=== PATIENT | female | born 1980 | race American Indian/Alaskan Native ===

== ENCOUNTER 2022-01-07 10:23 | Emergency (ER) | payer OTHER ==
[~2022-01-07] VITALS: Ht 172.7 cm; Wt 98.4 kg
[~2022-01-07 10:23] MED LIST: ALBU90OI INH; Loratadine10 MG PO; ONDA4ODT MM
[2022-01-07 10:48] LABS: BASOPHILS ABSOLUTE AUTO 0.03 K/mm3 (0.00-0.23); BASOPHILS PERCENT AUTO 0 % (0-2); EOSINOPHILS ABSOLUTE AUTO 0.07 K/mm3 (0.00-0.68); EOSINOPHILS PERCENT AUTO 1 % (0-6); Hematocrit 39.9 % (33.0-51.0); IMMATURE GRAN ABSOLUTE AUTO 0.02 K/mm3 (0.00-0.10); IMMATURE GRAN PERCENT AUTO 0 % (0-1); LYMPHOCYTES ABSOLUTE AUTO 2.08 K/mm3 (0.84-5.20); LYMPHOCYTES PERCENT AUTO 21 % (21-46); MONOCYTES ABSOLUTE AUTO 0.41 K/mm3 (0.16-1.47); MONOCYTES PERCENT AUTO 4 % (4-13); Mean Corpuscular HGB 27.3 pg (26.0-34.0); Mean Corpuscular HGB Conc 32.6 g/dL (31.5-36.5); Mean Corpuscular Volume 84 fL (80-100); Mean Platelet Volume 9.8 fL (9.1-12.4); NEUTROPHILS PERCENT AUTO 74 % (41-73); Platelet Count 392 K/mm3 (150-400); RDW Coefficient Variation 12.8 % (11.7-14.2); RDW Standard Deviation 38.9 fL (35.1-46.3); Red Blood Cell Count 4.76 M/mm3 (3.80-5.20); White Blood Cell Count 10.01 K/mm3 (4.00-11.30)
[2022-01-07 11:13] LABS: Alanine Aminotransfer (ALT/SGP 23 U/L (12-78); Albumin, Blood 3.5 g/dL (3.4-5.0); Albumin/Globulin Ratio 0.8 (0.8-1.8); Alk Phos 62 U/L (50-136); Anion Gap 8 mmol/L (6-16); Aspartate Aminotrans (AST/SGOT 18 U/L (12-37); Bilirubin, Total 0.3 mg/dL (0.1-1.0); Blood Urea Nitrogen 11 mg/dL (8-24); Bun/Creatinine Ratio 15.4 (12.0-20.0); CO2, Blood 23 mmol/L (21-32); Calcium, Blood 8.9 mg/dL (8.5-10.1); Chloride, Blood 106 mmol/L (98-108); Creatinine, Blood 0.72 mg/dL (0.40-1.00); Globulin, Blood 4.4 g/dL (2.2-4.0); Glomerular Filtration Rate >60 (60-); Glucose, Blood 103 mg/dL (70-99); Potassium, Blood 3.4 mmol/L (3.5-5.5); Sodium, Blood 137 mmol/L (136-145); Total Protein, Blood 7.9 g/dL (6.4-8.2)
[2022-01-07 11:56] LABS: Influenza A, PCR NEGATIVE (NEGATIVE); Influenza B, PCR NEGATIVE (NEGATIVE); Resp Syncytial Virus, PCR NEGATIVE (NEGATIVE); SARS-Cov-2 (COVID-19) PCR, MMC NEGATIVE (NEGATIVE)
[2022-01-07 12:19] LABS: Source, Urine Clean Catch
[2022-01-07 12:21] LABS: Bilirubin, Urine Neg (Neg); Blood, Urine 1+ (Neg); Glucose Qualitative, Urine Neg (Neg); Ketones, Urine 3+ (Neg); Leukocyte Esterase, Urine 2+ (Neg); Nitrite, Urine Neg (Neg); Protein, Urine 2+ (Neg); Specific Gravity, Urine 1.025 (1.003-1.022); Urobilinogen, Urine 1+ (Normal)
[2022-01-07 12:25] LABS: Appearance, Urine Hazy (Clear); Bacteria Mod /hpf; Color, Urine Pale Yellow (P-Yellow); Squamous Epithelial Cells Few /hpf (Few)
[2022-01-07] MEDS ORDERED: CEPH500 PO (13:19)
== END 2022-01-07 14:40 | disposition home or self-care (01) ==
LOC: ER 10:23
PROVIDERS: Physician Assistant
DX: N39.0 Urinary tract infection, site not specified (principal); R07.9 Chest pain, unspecified; I10 Essential (primary) hypertension; J45.909 Unspecified asthma, uncomplicated; I25.2 Old myocardial infarction; Z88.0 Allergy status to penicillin
CPT/HCPCS: 0241U; 71046; 80053; 81001; 81025; 84484; 85025; 87086; 93005; 93010; 96374; 96375; 99285-25; J1885; J2405

== ENCOUNTER 2022-01-23 11:54 | Emergency (ER) | payer OTHER ==
[~2022-01-23] VITALS: Ht 172.7 cm; Wt 98.0 kg
[~2022-01-23 11:54] MED LIST changes: +CEPH500 PO
[2022-01-23 12:33] LABS: BASOPHILS ABSOLUTE AUTO 0.02 K/mm3 (0.00-0.23); BASOPHILS PERCENT AUTO 0 % (0-2); EOSINOPHILS ABSOLUTE AUTO 0.01 K/mm3 (0.00-0.68); EOSINOPHILS PERCENT AUTO 0 % (0-6); Hematocrit 40.2 % (33.0-51.0); Hemoglobin 12.9 g/dL (11.5-16.0); IMMATURE GRAN ABSOLUTE AUTO 0.01 K/mm3 (0.00-0.10); IMMATURE GRAN PERCENT AUTO 0 % (0-1); LYMPHOCYTES ABSOLUTE AUTO 0.88 K/mm3 (0.84-5.20); LYMPHOCYTES PERCENT AUTO 17 % (21-46); MONOCYTES ABSOLUTE AUTO 0.59 K/mm3 (0.16-1.47); MONOCYTES PERCENT AUTO 12 % (4-13); Mean Corpuscular HGB 27.3 pg (26.0-34.0); Mean Corpuscular HGB Conc 32.1 g/dL (31.5-36.5); Mean Corpuscular Volume 85 fL (80-100); NEUTROPHILS ABSOLUTE AUTO 3.62 K/mm3 (1.96-9.15); NEUTROPHILS PERCENT AUTO 71 % (41-73); Platelet Count 267 K/mm3 (150-400); RDW Standard Deviation 39.9 fL (35.1-46.3); Red Blood Cell Count 4.73 M/mm3 (3.80-5.20); White Blood Cell Count 5.13 K/mm3 (4.00-11.30)
[2022-01-23 12:49] LABS: Alanine Aminotransfer (ALT/SGP 82 U/L (12-78); Albumin, Blood 3.4 g/dL (3.4-5.0); Albumin/Globulin Ratio 0.8 (0.8-1.8); Alk Phos 65 U/L (50-136); Anion Gap 7 mmol/L (6-16); Aspartate Aminotrans (AST/SGOT 66 U/L (12-37); Bilirubin, Total 0.2 mg/dL (0.1-1.0); Blood Urea Nitrogen 11 mg/dL (8-24); Bun/Creatinine Ratio 16.2 (12.0-20.0); CO2, Blood 25 mmol/L (21-32); Calcium, Blood 8.9 mg/dL (8.5-10.1); Chloride, Blood 104 mmol/L (98-108); Creatinine, Blood 0.68 mg/dL (0.40-1.00); Globulin, Blood 4.3 g/dL (2.2-4.0); Glomerular Filtration Rate >60 (60-); Glucose, Blood 116 mg/dL (70-99); Potassium, Blood 4.1 mmol/L (3.5-5.5); Sodium, Blood 136 mmol/L (136-145); Total Protein, Blood 7.7 g/dL (6.4-8.2)
[2022-01-23 12:59] LABS: Source, Urine Clean Catch
[2022-01-23] MEDS ORDERED: TOPI100 (13:08)
[2022-01-23] MEDS ORDERED: BENA20 (13:08)
[2022-01-23] MEDS ORDERED: ZOLOFT25 MG (13:08)
[2022-01-23 13:09] LABS: Appearance, Urine Clear (Clear); Bilirubin, Urine Neg (Neg); Blood, Urine 2+ (Neg); Color, Urine Yellow (P-Yellow); Glucose Qualitative, Urine Neg (Neg); Ketones, Urine 1+ (Neg); Leukocyte Esterase, Urine Neg (Neg); Nitrite, Urine Neg (Neg); Protein, Urine 2+ (Neg); Specific Gravity, Urine 1.025 (1.003-1.022); Urobilinogen, Urine NORM (Normal)
[2022-01-23 13:25] LABS: Bacteria Many /hpf; Mucus Mod (0-Heavy); Red Blood Cells, Urine 0-2 /hpf (0-2); Squamous Epithelial Cells Many /hpf (Few); White Blood Cells, Urine 0-2 /hpf (0-5)
== END 2022-01-23 14:15 | disposition home or self-care (01) ==
LOC: ER 11:54
PROVIDERS: Physician Assistant
DX: B34.9 Viral infection, unspecified (principal); J98.8 Other specified respiratory disorders; I10 Essential (primary) hypertension; J45.909 Unspecified asthma, uncomplicated; G43.909 Migraine, unspecified, not intractable, without status migrainosus; I25.2 Old myocardial infarction; Z88.0 Allergy status to penicillin; Z79.899 Other long term (current) drug therapy
CPT/HCPCS: 36415; 80053; 81001; 81025; 83690; 85025; 87086; 96374; 99284; A9270; J2405; J7030

== ENCOUNTER 2022-02-04 21:33 | Emergency (ER) | payer OTHER ==
[~2022-02-04] VITALS: Ht 172.7 cm; Wt 98.0 kg
[~2022-02-04 21:33] MED LIST changes: +BENA20; +TOPI100; +ZOLOFT25 MG
[2022-02-04 23:40] LABS: Influenza A, PCR NEGATIVE (NEGATIVE); Influenza B, PCR NEGATIVE (NEGATIVE); Resp Syncytial Virus, PCR NEGATIVE (NEGATIVE)
[2022-02-04 23:53] LABS: SARS-Cov-2 (COVID-19) PCR, MMC POSITIVE (NEGATIVE)
== END 2022-02-05 00:23 | disposition home or self-care (01) ==
LOC: ER 21:33
PROVIDERS: Physician Assistant
DX: U07.1 COVID-19 (principal); I10 Essential (primary) hypertension; I25.2 Old myocardial infarction; G43.909 Migraine, unspecified, not intractable, without status migrainosus; Z79.899 Other long term (current) drug therapy; Z88.0 Allergy status to penicillin
CPT/HCPCS: 0241U; 96374; 99284-25; A9270; J2405; J7030

== ENCOUNTER 2022-04-07 16:52 | Emergency (ER) | payer OTHER ==
[~2022-04-07] VITALS: Ht 172.7 cm; Wt 93.9 kg
[~2022-04-07 16:52] MED LIST changes: +LOPE2C PO
[2022-04-07] MEDS ORDERED: SERT100 PO (18:34)
[2022-04-07] MEDS ORDERED: IMODIUM A-D2 M4 PO (18:34)
[2022-04-07] MEDS ORDERED: TIZA4 PO (18:34)
[2022-04-07 20:23] LABS: BASOPHILS ABSOLUTE AUTO 0.05 K/mm3 (0.00-0.23); BASOPHILS PERCENT AUTO 0 % (0-2); EOSINOPHILS ABSOLUTE AUTO 0.01 K/mm3 (0.00-0.68); EOSINOPHILS PERCENT AUTO 0 % (0-6); Hematocrit 40.2 % (33.0-51.0); Hemoglobin 13.2 g/dL (11.5-16.0); IMMATURE GRAN ABSOLUTE AUTO 0.03 K/mm3 (0.00-0.10); IMMATURE GRAN PERCENT AUTO 0 % (0-1); LYMPHOCYTES ABSOLUTE AUTO 1.24 K/mm3 (0.84-5.20); LYMPHOCYTES PERCENT AUTO 11 % (21-46); MONOCYTES PERCENT AUTO 4 % (4-13); Mean Corpuscular HGB 27.3 pg (26.0-34.0); Mean Corpuscular HGB Conc 32.8 g/dL (31.5-36.5); Mean Corpuscular Volume 83 fL (80-100); Mean Platelet Volume 9.5 fL (9.1-12.4); NEUTROPHILS ABSOLUTE AUTO 9.92 K/mm3 (1.96-9.15); NEUTROPHILS PERCENT AUTO 84 % (41-73); Platelet Count 433 K/mm3 (150-400); RDW Coefficient Variation 12.9 % (11.7-14.2); RDW Standard Deviation 38.7 fL (35.1-46.3); Red Blood Cell Count 4.83 M/mm3 (3.80-5.20); White Blood Cell Count 11.75 K/mm3 (4.00-11.30)
[2022-04-07 20:43] LABS: Albumin, Blood 3.9 g/dL (3.4-5.0); Bilirubin, Total 0.5 mg/dL (0.1-1.0); Bun/Creatinine Ratio 29.1 (12.0-20.0); Calcium, Blood 9.3 mg/dL (8.5-10.1); Creatinine, Blood 0.59 mg/dL (0.40-1.00); Globulin, Blood 4.1 g/dL (2.2-4.0); Potassium, Blood 3.6 mmol/L (3.5-5.5)
[2022-04-07] MEDS ORDERED: Cleocin HCl300 MG PO (21:32)
[2022-04-07] MEDS ORDERED: ONDA4ODT MM (21:32)
== END 2022-04-07 21:56 | disposition home or self-care (01) ==
LOC: ER 16:52
PROVIDERS: Emergency Medicine
DX: R55 Syncope and collapse (principal); R11.2 Nausea with vomiting, unspecified; K04.7 Periapical abscess without sinus; I10 Essential (primary) hypertension; J45.909 Unspecified asthma, uncomplicated; Z79.899 Other long term (current) drug therapy; Z88.0 Allergy status to penicillin; F12.90 Cannabis use, unspecified, uncomplicated
CPT/HCPCS: 36415; 64400; 80053; 85025; 93005; 93010; 96374-59; 96375-59; 99283-25; A9270; J1885; J2765

== ENCOUNTER 2022-09-23 12:39 | Emergency (ER) | payer OTHER ==
[~2022-09-23] VITALS: Ht 172.7 cm; Wt 92.1 kg
[~2022-09-23 12:39] MED LIST changes: +ACYC400 PO; +Bactrim Ds Tab1 EACH PO; +Benazepril HCl10 MG PO; +Cleocin HCl300 MG PO; +IMODIUM A-D2 M4 PO; +MICO100S VAG; +PROM25 PO; +SERT100 PO; +TIZA4 PO; +TIZANIDINE HCL2 MG PO; +TOPI50 PO
[2022-09-23 14:02] LABS: Source, Urine Clean Catch
[2022-09-23 14:28] LABS: Appearance, Urine Hazy (Clear); Bilirubin, Urine Neg (Neg); Blood, Urine 2+ (Neg); Color, Urine Yellow (P-Yellow); Glucose Qualitative, Urine Neg (Neg); Ketones, Urine 4+ (Neg); Leukocyte Esterase, Urine 1+ (Neg); Nitrite, Urine Neg (Neg); Protein, Urine 3+ (Neg); Specific Gravity, Urine 1.025 (1.003-1.022); Urobilinogen, Urine NORM (Normal)
[2022-09-23 14:32] LABS: BASOPHILS ABSOLUTE AUTO 0.05 K/mm3 (0.00-0.23); BASOPHILS PERCENT AUTO 1 % (0-2); EOSINOPHILS ABSOLUTE AUTO 0.03 K/mm3 (0.00-0.68); EOSINOPHILS PERCENT AUTO 0 % (0-6); Hematocrit 44.3 % (33.0-51.0); Hemoglobin 14.4 g/dL (11.5-16.0); IMMATURE GRAN ABSOLUTE AUTO 0.03 K/mm3 (0.00-0.10); IMMATURE GRAN PERCENT AUTO 0 % (0-1); LYMPHOCYTES ABSOLUTE AUTO 1.88 K/mm3 (0.84-5.20); LYMPHOCYTES PERCENT AUTO 18 % (21-46); MONOCYTES ABSOLUTE AUTO 0.54 K/mm3 (0.16-1.47); MONOCYTES PERCENT AUTO 5 % (4-13); Mean Corpuscular HGB 28.6 pg (26.0-34.0); Mean Corpuscular HGB Conc 32.5 g/dL (31.5-36.5); Mean Corpuscular Volume 88 fL (80-100); Mean Platelet Volume 9.9 fL (9.1-12.4); NEUTROPHILS ABSOLUTE AUTO 7.89 K/mm3 (1.96-9.15); NEUTROPHILS PERCENT AUTO 76 % (41-73); Platelet Count 490 K/mm3 (150-400); RDW Coefficient Variation 11.9 % (11.7-14.2); RDW Standard Deviation 38.1 fL (35.1-46.3); Red Blood Cell Count 5.03 M/mm3 (3.80-5.20); White Blood Cell Count 10.42 K/mm3 (4.00-11.30)
[2022-09-23 14:33] LABS: Albumin, Blood 4.1 g/dL (3.4-5.0); Albumin/Globulin Ratio 0.9 (0.8-1.8); Bilirubin, Total 0.5 mg/dL (0.1-1.0); Bun/Creatinine Ratio 27.8 (12.0-20.0); Calcium, Blood 9.3 mg/dL (8.5-10.1); Creatinine, Blood 0.65 mg/dL (0.40-1.00); Globulin, Blood 4.7 g/dL (2.2-4.0); Potassium, Blood 3.5 mmol/L (3.5-5.5); Total Protein, Blood 8.8 g/dL (6.4-8.2)
[2022-09-23 14:54] LABS: Bacteria Many /hpf; Hyaline Casts 0-2 /lpf (0-2); Squamous Epithelial Cells Many /hpf (Few); Transitional Epithelial Cells Rare /hpf (0-Rare)
[2022-09-23 15:21] LABS: Influenza A, PCR NEGATIVE (NEGATIVE); Influenza B, PCR NEGATIVE (NEGATIVE); Resp Syncytial Virus, PCR NEGATIVE (NEGATIVE); SARS-Cov-2 (COVID-19) PCR, MMC NEGATIVE (NEGATIVE)
[2022-09-23] MEDS ORDERED: NITR100CA PO (16:23)
== END 2022-09-23 16:31 | disposition home or self-care (01) ==
LOC: ER 12:39
PROVIDERS: Physician Assistant
DX: N39.0 Urinary tract infection, site not specified (principal); B34.9 Viral infection, unspecified; I10 Essential (primary) hypertension; J45.909 Unspecified asthma, uncomplicated; G43.909 Migraine, unspecified, not intractable, without status migrainosus; I25.2 Old myocardial infarction; Z20.822 Contact with and (suspected) exposure to COVID-19; Z88.0 Allergy status to penicillin; Z79.899 Other long term (current) drug therapy
CPT/HCPCS: 0241U; 36415; 80053; 81001; 84703; 85025; 87086; A9270

== ENCOUNTER 2022-10-05 11:23 | Emergency (ER) | payer OTHER ==
[~2022-10-05] VITALS: Ht 172.7 cm; Wt 92.1 kg
[~2022-10-05 11:23] MED LIST changes: +NITR100CA PO
[2022-10-05 13:56] LABS: Influenza A, PCR NEGATIVE (NEGATIVE); Influenza B, PCR NEGATIVE (NEGATIVE); Resp Syncytial Virus, PCR NEGATIVE (NEGATIVE); SARS-Cov-2 (COVID-19) PCR, MMC NEGATIVE (NEGATIVE)
[2022-10-05] MEDS ORDERED: ONDA4ODT MM (15:28)
== END 2022-10-05 15:39 | disposition home or self-care (01) ==
LOC: ER 11:23
PROVIDERS: Physician Assistant
DX: J06.9 Acute upper respiratory infection, unspecified (principal); I10 Essential (primary) hypertension; J45.909 Unspecified asthma, uncomplicated; G43.909 Migraine, unspecified, not intractable, without status migrainosus; I25.2 Old myocardial infarction; Z20.822 Contact with and (suspected) exposure to COVID-19; Z88.0 Allergy status to penicillin; Z79.899 Other long term (current) drug therapy
CPT/HCPCS: 0241U; A9270; J1885

== ENCOUNTER 2022-12-08 07:15 | Emergency (ER) | payer OTHER ==
[~2022-12-08] VITALS: Ht 172.7 cm; Wt 93.0 kg
[2022-12-08 08:01] LABS: BASOPHILS ABSOLUTE AUTO 0.05 K/mm3 (0.00-0.23); BASOPHILS PERCENT AUTO 1 % (0-2); EOSINOPHILS ABSOLUTE AUTO 0.08 K/mm3 (0.00-0.68); EOSINOPHILS PERCENT AUTO 1 % (0-6); Hematocrit 44.2 % (33.0-51.0); Hemoglobin 14.6 g/dL (11.5-16.0); IMMATURE GRAN ABSOLUTE AUTO 0.01 K/mm3 (0.00-0.10); IMMATURE GRAN PERCENT AUTO 0 % (0-1); LYMPHOCYTES ABSOLUTE AUTO 1.88 K/mm3 (0.84-5.20); LYMPHOCYTES PERCENT AUTO 30 % (21-46); MONOCYTES ABSOLUTE AUTO 0.42 K/mm3 (0.16-1.47); MONOCYTES PERCENT AUTO 7 % (4-13); Mean Corpuscular Volume 85 fL (80-100); Mean Platelet Volume 9.2 fL (9.1-12.4); NEUTROPHILS ABSOLUTE AUTO 3.86 K/mm3 (1.96-9.15); NEUTROPHILS PERCENT AUTO 61 % (41-73); Platelet Count 373 K/mm3 (150-400); RDW Coefficient Variation 14.8 % (11.7-14.2); RDW Standard Deviation 45.1 fL (35.1-46.3); Red Blood Cell Count 5.21 M/mm3 (3.80-5.20)
[2022-12-08 08:07] LABS: Source, Urine Clean Catch
[2022-12-08 08:13] LABS: Appearance, Urine Clear (Clear); Bilirubin, Urine Neg (Neg); Blood, Urine 1+ (Neg); Color, Urine Yellow (P-Yellow); Glucose Qualitative, Urine Neg (Neg); Ketones, Urine Neg (Neg); Leukocyte Esterase, Urine Neg (Neg); Nitrite, Urine Neg (Neg); Protein, Urine 2+ (Neg); Specific Gravity, Urine 1.015 (1.003-1.022); Urobilinogen, Urine NORM (Normal); pH, Urine 6.5 (5.0-8.0)
[2022-12-08 08:22] LABS: Albumin, Blood 4.3 g/dL (3.4-5.0); Bilirubin, Total 0.4 mg/dL (0.1-1.0); Bun/Creatinine Ratio 20.8 (12.0-20.0); Calcium, Blood 9.3 mg/dL (8.5-10.1); Creatinine, Blood 0.62 mg/dL (0.40-1.00); Globulin, Blood 4.4 g/dL (2.2-4.0); Potassium, Blood 4.1 mmol/L (3.5-5.5); Total Protein, Blood 8.7 g/dL (6.4-8.2)
[2022-12-08 08:27] LABS: Bacteria Few /hpf; Red Blood Cells, Urine 0-2 /hpf (0-2); Squamous Epithelial Cells Rare /hpf (Few); White Blood Cells, Urine 0-2 /hpf (0-5)
[2022-12-08] MEDS ORDERED: Benazepril HCl10 MG PO (10:53)
[2022-12-08] MEDS ORDERED: SERT100 PO (10:53)
[2022-12-08] MEDS ORDERED: TOPI25 PO (10:53)
[2022-12-08] MEDS ORDERED: MIRALAX17 GM PO (10:55)
[2022-12-08] MEDS ORDERED: CITRATE OF MAG296 M1 PO (10:55)
== END 2022-12-08 11:19 | disposition home or self-care (01) ==
LOC: ER 07:15
PROVIDERS: Emergency Medicine
DX: I16.0 Hypertensive urgency (principal); K59.00 Constipation, unspecified; Z91.14 Patient's other noncompliance with medication regimen; J45.909 Unspecified asthma, uncomplicated; G43.909 Migraine, unspecified, not intractable, without status migrainosus; I25.2 Old myocardial infarction; Z79.899 Other long term (current) drug therapy
CPT/HCPCS: 74177; 80053; 81001; 83690; 83880; 84484; 84703; 85025; 93005; 93010; 96372-59; 96374-59; 96375; 99284-25; J0360; J0500; J0780; J1885; J2270; J7030; Q9967

== ENCOUNTER → 2023-03-22 | Outpatient (CLI) | payer OTHER ==
[~2023-03-22] MED LIST changes: +CITRATE OF MAG296 M1 PO; +MIRALAX17 GM PO; +TOPI25 PO
[2023-03-27 13:08] LABS: HPV 16 Negative (Negative); HPV 18 Negative (Negative); HPV OTHER HR TYPES Negative (Negative)
== END | disposition home or self-care (01) ==
LOC: LAB SHORT 10:30 → LAB 10:30
PROVIDERS: Physician Assistant
DX: Z01.419 Encounter for gynecological examination (general) (routine) without abnormal findings (principal)
CPT/HCPCS: 87624; G0145

== ENCOUNTER 2023-09-24 06:05 | Emergency (ER) | payer OTHER ==
[~2023-09-24] VITALS: Ht 172.7 cm; Wt 93.4 kg
[2023-09-24] MEDS ORDERED: TIZANIDINE HCL213 (06:11)
[2023-09-24] MEDS ORDERED: TOPI15C (06:12)
[2023-09-24 06:26] LABS: BASOPHILS ABSOLUTE AUTO 0.06 K/mm3 (0.00-0.23); BASOPHILS PERCENT AUTO 0 % (0-2); EOSINOPHILS PERCENT AUTO 0 % (0-6); Hematocrit 42.7 % (33.0-51.0); Hemoglobin 14.1 g/dL (11.5-16.0); IMMATURE GRAN ABSOLUTE AUTO 0.04 K/mm3 (0.00-0.10); IMMATURE GRAN PERCENT AUTO 0 % (0-1); LYMPHOCYTES ABSOLUTE AUTO 0.92 K/mm3 (0.84-5.20); LYMPHOCYTES PERCENT AUTO 7 % (21-46); MONOCYTES ABSOLUTE AUTO 0.31 K/mm3 (0.16-1.47); MONOCYTES PERCENT AUTO 2 % (4-13); Mean Corpuscular Volume 88 fL (80-100); Mean Platelet Volume 9.7 fL (9.1-12.4); NEUTROPHILS ABSOLUTE AUTO 12.12 K/mm3 (1.96-9.15); NEUTROPHILS PERCENT AUTO 90 % (41-73); Platelet Count 451 K/mm3 (150-400); RDW Coefficient Variation 14.7 % (11.7-14.2); RDW Standard Deviation 46.5 fL (35.1-46.3); Red Blood Cell Count 4.86 M/mm3 (3.80-5.20); White Blood Cell Count 13.45 K/mm3 (4.00-11.30)
[2023-09-24 06:46] LABS: Alanine Aminotransfer (ALT/SGP 27 U/L (12-78); Albumin, Blood 4.4 g/dL (3.4-5.0); Alk Phos 75 U/L (50-136); Anion Gap 17 mmol/L (6-16); Aspartate Aminotrans (AST/SGOT 23 U/L (12-37); Beta HCG, Quantitative, Serum <1 mIU/mL (0-3); Bilirubin, Total 0.6 mg/dL (0.1-1.0); Blood Urea Nitrogen 9 mg/dL (8-24); Bun/Creatinine Ratio 12.7 (12.0-20.0); CO2, Blood 16 mmol/L (21-32); Calcium, Blood 9.2 mg/dL (8.5-10.1); Chloride, Blood 106 mmol/L (98-108); Creatinine, Blood 0.71 mg/dL (0.40-1.00); Globulin, Blood 4.5 g/dL (2.2-4.0); Glomerular Filtration Rate 107 (60-); Glucose, Blood 131 mg/dL (70-99); Potassium, Blood 3.5 mmol/L (3.5-5.5); Sodium, Blood 139 mmol/L (136-145); Total Protein, Blood 8.9 g/dL (6.4-8.2)
[2023-09-24 07:49] LABS: Source, Urine Clean Catch
[2023-09-24 07:56] LABS: Bilirubin, Urine Neg (Neg); Blood, Urine 2+ (Neg); Glucose Qualitative, Urine Neg (Neg); Ketones, Urine 4+ (Neg); Leukocyte Esterase, Urine Neg (Neg); Nitrite, Urine Neg (Neg); Protein, Urine 3+ (Neg); Urobilinogen, Urine NORM (Normal)
[2023-09-24 08:23] LABS: Appearance, Urine Clear (Clear); Color, Urine Yellow (P-Yellow)
[2023-09-24 08:26] LABS: Bacteria Mod /hpf
[2023-09-24 08:27] LABS: Red Blood Cells, Urine 0-2 /hpf (0-2); White Blood Cells, Urine 0-2 /hpf (0-5)
[2023-09-24 08:28] LABS: Mucus Light (0-Heavy); Squamous Epithelial Cells Mod /hpf (Few)
[2023-09-24] MEDS ORDERED: DICY20 PO (09:47)
[2023-09-24] MEDS ORDERED: METO10 PO (09:47)
[2023-09-24] MEDS ORDERED: PROM12.5S PR (09:47)
[2023-09-24 10:13] VITALS: BP 174/92
== END 2023-09-24 10:27 | disposition home or self-care (01) ==
LOC: ER 06:05
PROVIDERS: Student in an Organized Health Care Education/Training Program
DX: R11.2 Nausea with vomiting, unspecified (principal); R19.7 Diarrhea, unspecified; R10.84 Generalized abdominal pain; I10 Essential (primary) hypertension; D72.829 Elevated white blood cell count, unspecified; E87.20 Acidosis, unspecified; J45.909 Unspecified asthma, uncomplicated; I25.2 Old myocardial infarction; Z88.0 Allergy status to penicillin; Z79.899 Other long term (current) drug therapy
CPT/HCPCS: 74177; 80053; 81001; 83690; 84702; 85025; 87086; 96374; 96375; 96376; 99285-25; A9270; J0780; J1790; J1885; J2270; J7030; Q9967

== ENCOUNTER 2024-09-09 13:21 | Emergency (ER) | payer OTHER ==
[~2024-09-09] VITALS: Ht 167.6 cm; Wt 79.4 kg
[~2024-09-09 13:21] MED LIST changes: +DICY20 PO; +METO10 PO; +PROM12.5S PR; +TIZANIDINE HCL213; +TOPI15C
[2024-09-09 13:46] VITALS: BP 144/117
[2024-09-09 14:45] LABS: BASOPHILS ABSOLUTE AUTO 0.08 K/mm3 (0.00-0.23); BASOPHILS PERCENT AUTO 1 % (0-2); EOSINOPHILS ABSOLUTE AUTO 0.11 K/mm3 (0.00-0.68); EOSINOPHILS PERCENT AUTO 1 % (0-6); Hematocrit 38.3 % (33.0-51.0); Hemoglobin 12.8 g/dL (11.5-16.0); IMMATURE GRAN ABSOLUTE AUTO 0.03 K/mm3 (0.00-0.10); IMMATURE GRAN PERCENT AUTO 0 % (0-1); LYMPHOCYTES ABSOLUTE AUTO 1.95 K/mm3 (0.84-5.20); LYMPHOCYTES PERCENT AUTO 13 % (21-46); MONOCYTES ABSOLUTE AUTO 0.89 K/mm3 (0.16-1.47); MONOCYTES PERCENT AUTO 6 % (4-13); Mean Corpuscular HGB 27.9 pg (26.0-34.0); Mean Corpuscular HGB Conc 33.4 g/dL (31.5-36.5); Mean Corpuscular Volume 84 fL (80-100); Mean Platelet Volume 10.3 fL (9.1-12.4); NEUTROPHILS ABSOLUTE AUTO 11.91 K/mm3 (1.96-9.15); NEUTROPHILS PERCENT AUTO 80 % (41-73); Platelet Count 388 K/mm3 (150-400); RDW Coefficient Variation 14.6 % (11.7-14.2); RDW Standard Deviation 44.3 fL (35.1-46.3); Red Blood Cell Count 4.58 M/mm3 (3.80-5.20); White Blood Cell Count 14.97 K/mm3 (4.00-11.30)
[2024-09-09 15:06] LABS: Alanine Aminotransfer (ALT/SGP 24 U/L (12-78); Alk Phos 60 U/L (50-136); Anion Gap 13 mmol/L (3-11); Aspartate Aminotrans (AST/SGOT 24 U/L (12-37); Beta HCG, Quantitative, Serum <1 mIU/mL (0-3); Bilirubin, Total 0.8 mg/dL (0.1-1.0); Blood Urea Nitrogen 20 mg/dL (8-24); Bun/Creatinine Ratio 24.4 (12.0-20.0); CO2, Blood 21 mmol/L (21-32); Calcium, Blood 9.4 mg/dL (8.5-10.1); Chloride, Blood 109 mmol/L (98-108); Creatinine, Blood 0.82 mg/dL (0.40-1.00); Globulin, Blood 4.1 g/dL (2.2-4.0); Glomerular Filtration Rate 90 (60-); Glucose, Blood 105 mg/dL (70-99); Potassium, Blood 3.8 mmol/L (3.5-5.5); Sodium, Blood 139 mmol/L (136-145); Total Protein, Blood 8.1 g/dL (6.4-8.2)
== END 2024-09-09 18:03 | disposition home or self-care (01) ==
LOC: ER 13:21
PROVIDERS: Emergency Medicine
DX: F15.129 Other stimulant abuse with intoxication, unspecified (principal); I10 Essential (primary) hypertension; I25.2 Old myocardial infarction; J45.909 Unspecified asthma, uncomplicated; F32.A Depression, unspecified; F41.9 Anxiety disorder, unspecified; Z79.899 Other long term (current) drug therapy; Z88.0 Allergy status to penicillin
CPT/HCPCS: 71046; 80053; 83690; 84484; 84702; 85025; 99284-25

== ENCOUNTER 2024-12-02 03:31 | Inpatient (IN) | payer OTHER ==
[~2024-12-02] VITALS: Ht 172.7 cm; Wt 83.1 kg
[2024-12-02] VITALS (15 sets, daily range): BP systolic 143–213; BP diastolic 89–183
[2024-12-02 03:51] LABS: BASOPHILS PERCENT AUTO 1 % (0-2); EOSINOPHILS ABSOLUTE AUTO 0.11 K/mm3 (0.00-0.68); EOSINOPHILS PERCENT AUTO 1 % (0-6); Hematocrit 36.8 % (33.0-51.0); Hemoglobin 11.9 g/dL (11.5-16.0); IMMATURE GRAN ABSOLUTE AUTO 0.04 K/mm3 (0.00-0.10); IMMATURE GRAN PERCENT AUTO 0 % (0-1); LYMPHOCYTES ABSOLUTE AUTO 1.35 K/mm3 (0.84-5.20); LYMPHOCYTES PERCENT AUTO 11 % (21-46); MONOCYTES ABSOLUTE AUTO 0.54 K/mm3 (0.16-1.47); MONOCYTES PERCENT AUTO 4 % (4-13); Mean Corpuscular HGB 27.2 pg (26.0-34.0); Mean Corpuscular HGB Conc 32.3 g/dL (31.5-36.5); Mean Corpuscular Volume 84 fL (80-100); NEUTROPHILS ABSOLUTE AUTO 10.02 K/mm3 (1.96-9.15); NEUTROPHILS PERCENT AUTO 83 % (41-73); Platelet Count 455 K/mm3 (150-400); RDW Coefficient Variation 13.9 % (11.7-14.2); RDW Standard Deviation 42.8 fL (35.1-46.3); Red Blood Cell Count 4.37 M/mm3 (3.80-5.20); White Blood Cell Count 12.16 K/mm3 (4.00-11.30)
[2024-12-02] MEDS ORDERED: Furosemide 10 MG/ML 4ML Vial IV ONE (03:55)
[2024-12-02 04:12] LABS: Alanine Aminotransfer (ALT/SGP 24 U/L (12-78); Albumin, Blood 3.4 g/dL (3.4-5.0); Albumin/Globulin Ratio 0.8 (0.8-1.8); Alk Phos 72 U/L (50-136); Anion Gap 14 mmol/L (3-11); Aspartate Aminotrans (AST/SGOT 27 U/L (12-37); Bilirubin, Total 0.6 mg/dL (0.1-1.0); Blood Urea Nitrogen 20 mg/dL (8-24); CO2, Blood 22 mmol/L (21-32); Calcium, Blood 9.2 mg/dL (8.5-10.1); Chloride, Blood 105 mmol/L (98-108); Creatinine, Blood 0.56 mg/dL (0.40-1.00); Ethanol (Alcohol), Blood, Med <3 mg/dL; Globulin, Blood 4.3 g/dL (2.2-4.0); Glomerular Filtration Rate 115 (60-); Glucose, Blood 121 mg/dL (70-99); Potassium, Blood 3.5 mmol/L (3.5-5.5); Sodium, Blood 137 mmol/L (136-145); Total Protein, Blood 7.7 g/dL (6.4-8.2)
[2024-12-02] MEDS ORDERED: Ziprasidone Mesylate 20 MG / Vial IM ONE (04:15)
[2024-12-02] MEDS ORDERED: Ketorolac Tromethamine 15mg Vial IV ONE (04:15)
[2024-12-02 04:44] LABS: Influenza A, PCR NEGATIVE (NEGATIVE); Influenza B, PCR NEGATIVE (NEGATIVE); Resp Syncytial Virus, PCR NEGATIVE (NEGATIVE); SARS-Cov-2 (COVID-19) PCR, MMC NEGATIVE (NEGATIVE)
[2024-12-02 05:34] LABS: U Amphetamine Screen Not Detected; U Barbituate Screen Not Detected; U Benzodiazapine Screen Not Detected; U Buprenorphine Screen Not Detected; U Cannabinoids Screen Not Detected; U Cocaine Screen Not Detected; U Methadone Screen Not Detected; U Methamphetamine Screen Not Detected; U Opiates Screen Not Detected; U Oxycodone Screen Not Detected; U Phencyclidine Screen Not Detected
[2024-12-02] MEDS ORDERED: HydrALAZINE HCl 20 MG / ML 1ML Vial IV PRN (06:00)
--- NOTE | 2024-12-02 06:37 | NUR ---
ARRIVAL TO PCU ROOM 6 PT ARRIVED VIA ED CART,PT VERY ANXIOUS,SPEECH RUSHED.PT TRANSFERRED TO BED WITH SBA.BP'S BP ELEVATED AT 192/130,OXYGEN SATURATION .93 ON RA,TACHPNEIC AT 22BPM.USING THE COMMODE FREQUENTLY TO URINATE SECONDARY TO LASIX ADMINISTRATION IN THE ED.ROOM ORIENTATION COMPLETED,CALL LIGHT AND PT'S ITEMS WITHIN REACH.WILL CONTINUE TO MONITOR.
[2024-12-02] MEDS ORDERED: Ketorolac Tromethamine 15mg Vial IV PRN (10:30)
[2024-12-02] MEDS ORDERED: Acetaminophen 325 MG TABLET PO PRN (14:40)
[2024-12-02] MEDS ORDERED: TraMADol HCl 50 MG Tab PO PRN (14:45)
[2024-12-02] MEDS ORDERED: Enoxaparin 40 MG/0.4 ML SYR SC SCH (15:00)
--- NOTE | 2024-12-02 18:42 | NUR ---
SHIFT SUMMARY: PT HAS BEEN LETHARGIC, SLEEPING OFTEN, WAKES EASILY. WHEN SLEEPING, PT SEEMS TO BE RESTING COMFORTABLY AND QUIETLY BUT WHEN AWAKE PT IS MOANING, RESPIRATIONS BECOME TACHYPNEIC AND PT C/O HEADACHE/FACIAL PAIN, PT MEDICATED PER EMAR. PT REPORTS IMPROVEMENT TO SOB SINCE ADMISSION, O2 SATS >93% ON 1L/MIN NC. SR/ST ON MONITOR, PT DENIES CP, MEDICATED x1 FOR HTN. PT REPORTS SHE HASN'T TAKEN HER HOME MEDICATIONS x6 MONTHS BECAUSE "I RAN OUT, HAVEN'T HAD THEM". DENTAL HYGIENIST TO BEDSIDE FOR CONSULTATION, PROVIDER NOTIFIED OF FINDINGS. BEDBATH COMPLETED THIS SHIFT. PT HAS BEEN SBA TO BSC. PT RESTING QUIETLY W/LIGHTS LOW, CALL LIGHT IN REACH.
--- NOTE | 2024-12-02 21:56 | NUR ---
ASSUMED CARE OF THIS PT AT 1915. PT HAS LETHERGIC AND ONLY WAKES TO VERBAL OR PHYSICAL STIMUSIS, PT WILL ANSWER QUESTIONS CORRECTLY ONCE AWOKEN. DENIES NEEDS DURING ASSESSMENT FROM THIS RN. ONCE ASSESSMENT WAS COMPLETE PT QUICKLY WENT BACK TO SLEEP. BED IN LOWEST POSTION, CALL LIGHT IN REACH.
[2024-12-03] VITALS (13 sets, daily range): BP systolic 105–174; BP diastolic 65–107
[2024-12-03] MEDS ORDERED: Ondansetron HCl 2 MG / ML 2ML Vial IV PRN (00:25)
--- NOTE | 2024-12-03 00:30 | NUR ---
NURSE NOTE PT AWOKE FOR THIS RN TO TAKE HER VITALS, SHE ENDORSES A TAVERAS. SHE TRANSFERED TO THE BSC AND BACK, ONCE BACK IN BED SHE VOMITED ONCE INTO AN EMESIS BAG. TREATED B/P PER EMAR PRN ORDERS W/ HYDRALAZINE, WELL TRAMADOL FOR TAVERAS. BED IN LOWEST POSTION, CALL LIGHT IN REACH.
[2024-12-03 04:07] LABS: BASOPHILS ABSOLUTE AUTO 0.06 K/mm3 (0.00-0.23); BASOPHILS PERCENT AUTO 1 % (0-2); EOSINOPHILS ABSOLUTE AUTO 0.03 K/mm3 (0.00-0.68); EOSINOPHILS PERCENT AUTO 0 % (0-6); Hemoglobin 10.8 g/dL (11.5-16.0); IMMATURE GRAN ABSOLUTE AUTO 0.04 K/mm3 (0.00-0.10); IMMATURE GRAN PERCENT AUTO 0 % (0-1); LYMPHOCYTES ABSOLUTE AUTO 1.33 K/mm3 (0.84-5.20); LYMPHOCYTES PERCENT AUTO 12 % (21-46); MONOCYTES PERCENT AUTO 6 % (4-13); Mean Corpuscular HGB 27.1 pg (26.0-34.0); Mean Corpuscular HGB Conc 32.7 g/dL (31.5-36.5); Mean Corpuscular Volume 83 fL (80-100); Mean Platelet Volume 9.8 fL (9.1-12.4); NEUTROPHILS ABSOLUTE AUTO 8.97 K/mm3 (1.96-9.15); NEUTROPHILS PERCENT AUTO 81 % (41-73); Platelet Count 413 K/mm3 (150-400); RDW Coefficient Variation 14.5 % (11.7-14.2); RDW Standard Deviation 43.3 fL (35.1-46.3); Red Blood Cell Count 3.98 M/mm3 (3.80-5.20); White Blood Cell Count 11.13 K/mm3 (4.00-11.30)
[2024-12-03 04:45] LABS: Bun/Creatinine Ratio 43.8 (12.0-20.0); Calcium, Blood 8.9 mg/dL (8.5-10.1); Creatinine, Blood 0.62 mg/dL (0.40-1.00); Potassium, Blood 3.5 mmol/L (3.5-5.5)
--- NOTE | 2024-12-03 05:47 | NUR ---
SHIFT SUMMARY PT IS A+O X4, REPOSTIONS SELF IN BED, ABLE TO MAKE NEEDS KNOWN. IDEPT TO THE BSC. PT STILL HAVING ISSUES W/ TAVERAS THIS MORNING MEDICATED PER EMAR. PT REQUESTING LOWE STIMULIS MUCH POSSIBLE. VSS, SINCE BEING TREATED W/ HYDRALAZINE FOR HYPERTENTION. PT ON 1 LITER NC SATTING AT 94%. DENIES CHEST PAIN OR PRESSURE, BREAHTING EVEN AND UNLABORED. IN NO ACUTE DISTRESS. BED IN LOWEST POSTION, CALL LIGHT IN REACH. WILL CONTINUE TO TREAT AND REPORT TO ONCOMING RN.
[2024-12-03] MEDS ORDERED: Lisinopril 10 MG Tab PO SCH (09:00)
[2024-12-03] MEDS ORDERED: Furosemide 10 MG/ML 4ML Vial IV SCH (09:00)
--- NOTE | 2024-12-03 09:00 | NUR ---
AM NOTE: PATIENT ALERT AND ORIENTED X4. UP TO BSC WITH SBA. MOVING ALL EXTREMITIES. OVERALL FEELING WEAK AND SLOW TO MOVE. COMPLAINS OF 10/10 HEADACHE RADIATING DOWN NECK. PATIENT REPORTS SHE THINKS IT IS DUE TO BROKEN/IRRITATED TEETH. MULITPLE BROKEN TEETH WITH RED SWOLLEN GUMS. MEDICATED PER EMAR FOR PAIN WITH MINIMAL RELIEF. DR. FIELD UPDATED ON PAIN AND NEW ORDERS PLACED WELL CT SCAN. TELE SHOWING SR WITH HR 80'S. DENIES CHEST PAIN/PRESSURE/PALPITATIONS. PPP. IV SALINE LOCKED. NO EDEMA NOTED. ON 1L NASAL CANNULA SATING MID 90'S. LUNGS SOUNDS CLEAR/DIM. DENIES SOB AT REST. EVEN AND UNLABORED RESPIRATIONS. BOWEL TONES PRESENT THROUGHOUT. PATIENT FEELING NAUSEAOUS AND HAVING INTERMIT EMESIS. PATIENT STATES HER VOMMITING IS DUE TO SEVERE HEADACHE. MEDICATED PER EMAR FOR NAUSEA. EATING SMALL AMOUNTS. DRINKING WATER. UP TO BSC TO VOID. ATTENDS IN PLACE. SKIN OVERALL PALE AND COOL. CALL LIGHT IN REACH.
[2024-12-03] MEDS ORDERED: CefTRIAXone Sodium 1,000 MG in NS 100 ML IV SCH (09:26)
[2024-12-03] MEDS ORDERED: Ketorolac Tromethamine 15mg Vial IV PRN (09:30)
[2024-12-03] MEDS ORDERED: Metoclopramide HCl 5MG / ML 2ML Vial IV PRN (09:40)
[2024-12-03] MEDS ORDERED: Acetamin/Butalbital/Caffeine Tab PO PRN (11:45)
[2024-12-03 12:58] LABS: Magnesium, Blood 1.9 mg/dL (1.6-2.4); Potassium, Blood 3.5 mmol/L (3.5-5.5)
[2024-12-03] MEDS ORDERED: Potassium Chloride 20 MEQ TabCR PO ONE (13:40)
--- NOTE | 2024-12-03 13:42 | NUR ---
TELE NOTIFIED THIS RN OF NEW T WAVE INVERSION. THIS RN UPDATED DR. FIELD. ORDERS FOR K AND MAG LABS. LABS REPORTED TO DR. FIELD. NO NEW ORDERS FOR THIS RN TO PLACE. PATIENT RESTING AT THIS TIME WITH EYES CLOSED. CALL LIGHT IN REACH.
[2024-12-03] MEDS ORDERED: MetroNIDAZOLE 500MG/NS 100 ml 100 ML IV SCH (16:00)
--- NOTE | 2024-12-03 17:46 | NUR ---
SHIFT SUMMARY: NO ACUTE CHANGES. PATIENT REMAINS ALERT AND ORIENTED. CONTINUES TO HAVE INTERMIT HEADACHES/TOOTHACHES. NAUSEA/VOMMITING RESOLVED WITH EMAR MEDICATIONS. VITAL SIGNS REMAINS STABLE. SEE PREVIOUS NOTE ABOUT INVERTED T WAVE. TELE CONTINUES TO SHOW SR WITH HR 80'S. REMAINS ON 1L NASAL CANNULA. IV ABX INFUSED THIS SHIFT. UP TO BSC WITH CLEAR/YELLOW URINE OUTPUT. CALL LIGHT IN REACH.
[2024-12-03] MEDS ORDERED: Lactobacil 2-S.Thermo-Bifido 1 1 Cap PO SCH (21:00)
--- NOTE | 2024-12-03 21:10 | NUR ---
ASSUMED CARE OF THIS PT AT 1900. PT IS A+O X4, SHE STATES SHE HAD A "ROUGH" DAY TODAY. PT IS STILL EXPIERENCING A TAVERAS AND SOME NAUSEA WITH NO VOMITING. PT REQUESTED SOMETHING FOR PAIN AND WAS MEDICATED W/ TORADOL PER EMAR, UPON REASSESSMENT PT REPORTS DECREASE IN PAIN LEVEL. SNACK PROVIDED AT PT REQUEST AND DENIES ANY OTHER NEEDS AT THIS TIME. BED IN LOWEST POSTION, CALL LIGHT IN REACH
[2024-12-04 03:48] VITALS: BP 150/90
--- NOTE | 2024-12-04 05:34 | NUR ---
SHIFT SUMMARY PT IS A+O X4, ABLE TO MAKE NEEDS KNOWN, REPOSTIONS SELF IN BED. PATIENT HAS BEEN EXTERMLY PAINFUL W/ TAVERAS DURING THE DURATION OF THIS SHIFT. PT WILL GROAN UP W/ ANYCARE PROVIDED AND HAS BEEN MEDICATED FOR PAIN PER EMAR THROUGHTOUT THE NIGHT. PT ENDOURSES FEELING NAUSEA W/ NO VOMITTING. SHE REQUESTED SNACKS X2 AND IS KEEPING FOOD DOWN. PT WAS NOTED TO HAVE A DRY NONPRODUCTIVE COUGH. PT IS ON 1 LITER NC SATTING AT 94% AND ABOVE. BP STABLE AND DID NOT REQUIRE MEDICATION TO MAINTAIN. AFEBRILE. PERRLA. STRENGTH EQUAL THROUGHT. ABLE TO FOLLOW COMMANDS. PT IS HOPEFUL TO GO HOME TODAY. CALLL LIGHT IN REACH, BED IN LOWEST POSTION. WILL CONTINUE TO TREAT AND REPORT TO ONCOMING RN.
[2024-12-04 07:39] VITALS: BP 107/79
[2024-12-04 09:12] VITALS: BP 129/87
[2024-12-04] MEDS ORDERED: Mag Hydrox/AL Hydrox/Simeth 30 ML UDC PO ONE ×2 (09:35→18:20)
[2024-12-04 10:52] LABS: BASOPHILS ABSOLUTE AUTO 0.05 K/mm3 (0.00-0.23); BASOPHILS PERCENT AUTO 1 % (0-2); EOSINOPHILS ABSOLUTE AUTO 0.18 K/mm3 (0.00-0.68); EOSINOPHILS PERCENT AUTO 2 % (0-6); Hematocrit 35.7 % (33.0-51.0); Hemoglobin 11.5 g/dL (11.5-16.0); IMMATURE GRAN ABSOLUTE AUTO 0.02 K/mm3 (0.00-0.10); IMMATURE GRAN PERCENT AUTO 0 % (0-1); LYMPHOCYTES ABSOLUTE AUTO 1.42 K/mm3 (0.84-5.20); LYMPHOCYTES PERCENT AUTO 16 % (21-46); MONOCYTES ABSOLUTE AUTO 0.57 K/mm3 (0.16-1.47); MONOCYTES PERCENT AUTO 7 % (4-13); Mean Corpuscular HGB 27.4 pg (26.0-34.0); Mean Corpuscular HGB Conc 32.2 g/dL (31.5-36.5); Mean Corpuscular Volume 85 fL (80-100); NEUTROPHILS ABSOLUTE AUTO 6.59 K/mm3 (1.96-9.15); NEUTROPHILS PERCENT AUTO 75 % (41-73); Platelet Count 403 K/mm3 (150-400); RDW Coefficient Variation 14.5 % (11.7-14.2); RDW Standard Deviation 44.3 fL (35.1-46.3); White Blood Cell Count 8.83 K/mm3 (4.00-11.30)
[2024-12-04 11:05] LABS: Bun/Creatinine Ratio 36.9 (12.0-20.0); Calcium, Blood 9.2 mg/dL (8.5-10.1); Creatinine, Blood 0.65 mg/dL (0.40-1.00); Magnesium, Blood 1.8 mg/dL (1.6-2.4); Potassium, Blood 3.7 mmol/L (3.5-5.5)
[2024-12-04] MEDS ORDERED: Saline Nasal Spray 45 ML PRN (11:20)
[2024-12-04 17:22] VITALS: BP 153/98
--- NOTE | 2024-12-04 18:22 | NUR ---
SHIFT SUMMARY: PT A&OX4. FOLLOWS COMMANDS AND MAKES NEEDS KNOWN TO STAFF. PT REPORTED CP THIS AFTER EATING BREAKFAST THAT WAS RELIEVE WITH MAALOX. REPORTED CP AGAIN THIS EVENING AFTER EATING DINNER. AN ADDITIONAL ORDER FOR MAALOX WAS OBTAINED FROM PROVIDER. PT REPORTES A HEADACHE FOR MOST OF THE DAY AND RECIEVED A MODERATE AMOUNT OF RELIEF AFTER RECIEVING MEDS. PT IS SCHEDUELED TO HAVE A STRESS TEST TOMORROW. NO OTHER SIGNIFICANT EVENTS HAPPENED DURING THIS SHIFT. WILL CONTINUE TO CARE FOR PT TILL END OF SHIFT.
[2024-12-04 20:01] VITALS: BP 133/82
--- NOTE | 2024-12-04 21:40 | NUR ---
ASSUMED CARE OF THIS PT AT 1915. PT IS A+O X4, ABLE TO MAKE NEEDS KNOWN. REPOSTIONS SELF IN BED. PT IS AN INDEPENT TRANSFER TO THE BSC. PT ENDORSES SHE HAS STRUGGLED WITH A TAVERAS ALL DAY TODAY. VSS. PT TITRATED OFF OF OXYGEN TODAY ON RA SATTING AT 94% AND ABOVE. DENIES NEEDS AT THIS TIME. WILL BE NPO AT MIDNIGHT FOR A STRESS TEST TOMORROW MORNING. BED IN LOWEST POSTION FOR SAFETY, CALL LIGHT IN REACH.
[2024-12-04 23:26] VITALS: BP 141/96
[2024-12-05 03:42] VITALS: BP 155/98
[2024-12-05 04:20] LABS: BASOPHILS ABSOLUTE AUTO 0.06 K/mm3 (0.00-0.23); BASOPHILS PERCENT AUTO 1 % (0-2); EOSINOPHILS ABSOLUTE AUTO 0.38 K/mm3 (0.00-0.68); EOSINOPHILS PERCENT AUTO 4 % (0-6); Hematocrit 32.8 % (33.0-51.0); Hemoglobin 10.8 g/dL (11.5-16.0); IMMATURE GRAN ABSOLUTE AUTO 0.02 K/mm3 (0.00-0.10); IMMATURE GRAN PERCENT AUTO 0 % (0-1); LYMPHOCYTES ABSOLUTE AUTO 2.13 K/mm3 (0.84-5.20); LYMPHOCYTES PERCENT AUTO 24 % (21-46); MONOCYTES ABSOLUTE AUTO 0.74 K/mm3 (0.16-1.47); MONOCYTES PERCENT AUTO 8 % (4-13); Mean Corpuscular HGB 27.3 pg (26.0-34.0); Mean Corpuscular HGB Conc 32.9 g/dL (31.5-36.5); Mean Corpuscular Volume 83 fL (80-100); Mean Platelet Volume 10.1 fL (9.1-12.4); NEUTROPHILS ABSOLUTE AUTO 5.54 K/mm3 (1.96-9.15); NEUTROPHILS PERCENT AUTO 63 % (41-73); Platelet Count 410 K/mm3 (150-400); RDW Standard Deviation 42.5 fL (35.1-46.3); Red Blood Cell Count 3.96 M/mm3 (3.80-5.20); White Blood Cell Count 8.87 K/mm3 (4.00-11.30)
[2024-12-05 04:38] LABS: Bun/Creatinine Ratio 30.8 (12.0-20.0); Calcium, Blood 9.1 mg/dL (8.5-10.1); Creatinine, Blood 0.65 mg/dL (0.40-1.00); Potassium, Blood 3.9 mmol/L (3.5-5.5)
--- NOTE | 2024-12-05 05:16 | NUR ---
SHIFT SUMMARY PT IS A+O X4, ABLE TO MAKE NEEDS KNOWN, REPOSTIONS SELF IN BED. SHE HAS REMAINED PAINFUL T/O SHIFT ENDORSING A TAVERAS EACH TIME THIS RN INTERACTED W/ PATIENT. PT TRANSFERS SELF TO THE BSC FOR VOIDING. CURRENTLY NPO FOR STRESS TEST THIS AM. ON RA SATTING AT 94% AND ABOVE. BP STABLE. AFEBRILE. NO ACUTE CHANGES AT THIS TIME. PT DENIES NEEDS AT THIS TIME. CALL LIGHT IN REACH, WILL CONTINUE TO TREAT AND REPORT TO ONCOMING RN.
[2024-12-05 07:47] VITALS: BP 162/101
[2024-12-05] MEDS ORDERED: Loperamide HCl 2 MG Cap PO PRN (09:35)
[2024-12-05 12:23] VITALS: BP 149/102
--- NOTE | 2024-12-05 12:31 | NUR ---
TRANSFER NOTE PT TRANSFERRED FROM [facility], REPORT RECEIVED FROM APARNA GARCIA. PT ORIENTED TO THE ROOM.
[2024-12-05] MEDS ORDERED: Regadenoson 0.4 MG/5 ML SYRINGE ONE (13:58)
[2024-12-05 14:45] VITALS: BP 163/95
[2024-12-05] MEDS ORDERED: NS 250 ML IV PRN (16:10)
--- NOTE | 2024-12-05 18:32 | NUR ---
SHIFT SUMMARY PT AOX4, BR AT THIS TIME. PT STATES DIZZINESS WITH STANDING, HESITANT TO PARTICIPATE IN CARE AT TIMES. REFUSES CARE AT TIMES WELL. EDUCATION PROVIDED TO THE PT TO WHY IT IS IMPORTANT TO PARTICIPATE. PLAN IS TO FIND PATIENT PLACEMENT. NO ACUTE CHANGES THIS SHIFT. PT HAS HAD NO COMPLAINTS OTHER THAN THE FOOD BUT THIS NURSE ASSISTED HER WITH THE MENU. THIS NURSE ALSO GOT HER READING GLASSES WHICH HAS NOW ALLOWED HER TO ORDER FROM THE MENU HERSELF. REPOSITIONS SELF IN BED. BRIEF CHANGED NEEDED. CALL LIGHT WITHIN REACH, BED LOCKED AND IN THE LOWEST POSITION. WILL REPORT TO ONCOMING NURSE.
--- NOTE | 2024-12-05 18:34 | NUR ---
SHIFT SUMMARY PT AOX4, INDEPENDENT IN THE ROOM. MEDICATED FOR PAIN PER THE EMAR. NO EVENTS PER TELE. REPOSITIONS SELF IN BED. CALLS TO MAKE HER NEEDS KNOWN. STRESS TEST COMPLETED THIS SHIFT. POSSIBLE DC TOMORROW. CALL LIGHT WITHIN REACH, BED LOCKED AND IN THE LOWEST POSITION. WILL REPORT TO ONCOMING NURSE.
[2024-12-05 21:33] VITALS: BP 167/99
[2024-12-06 05:06] VITALS: BP 138/88
--- NOTE | 2024-12-06 05:53 | NUR ---
Shift Summary Pt c/o 07/16 headache which she has been experiencing non stop for the last week, medicated per emar to provide temporary relief. Educated pt on possiblity of Medication Overuse Headache and advised to see her provider outpt for advice on her ongoing headache. Prior to arrival she was taking tylenol and ibprofen every day for headache for some time, she used to take topomax 6 months ago to help prevent migranes. Plan is to go home today after MD review of stress test.
[2024-12-06 07:42] VITALS: BP 153/101
[2024-12-06 07:46] VITALS: BP 145/93
[2024-12-06] MEDS ORDERED: FURO20 PO (13:30)
[2024-12-06] MEDS ORDERED: ACET325 PO (13:30)
--- NOTE | 2024-12-06 15:24 | NUR ---
DISCHARGE SUMMARY PT DC THIS SHIFT. DC INSTRUCTION GONE OVER WITH PT WHOM STATED UNDERSTANDING. PT WAS ESCORTED OUT TO TRANSPORTATION SERVICE BY THIS NURSE VIA WHEELCHAIR.
== END 2024-12-06 14:00 | disposition home or self-care (01) | DRG 291 ==
LOC: ER 03:31 → ERHOLD 03:32 → PCU 03:32 → MEDS 12-05 12:21
PROVIDERS: Emergency Medicine; Family Medicine; ADMIT Internal Medicine
DX: I11.0 Hypertensive heart disease with heart failure (principal); I50.33 Acute on chronic diastolic (congestive) heart failure; I47.10 Supraventricular tachycardia, unspecified; Z66 Do not resuscitate; K04.7 Periapical abscess without sinus; F15.10 Other stimulant abuse, uncomplicated; D72.829 Elevated white blood cell count, unspecified; R07.9 Chest pain, unspecified; G43.909 Migraine, unspecified, not intractable, without status migrainosus; F32.A Depression, unspecified; I16.0 Hypertensive urgency; I42.7 Cardiomyopathy due to drug and external agent; F41.9 Anxiety disorder, unspecified; I25.2 Old myocardial infarction; Z88.0 Allergy status to penicillin; Z87.891 Personal history of nicotine dependence
CPT/HCPCS: 0241U; 36415; 70487; 71045; 78452; 80048; 80053; 80320; 83735; 83880; 84132; 84145; 84484; 85025; 93005; 93010; 93017; 93306; 94660; 94762; 96365; 96372; 96375; 96376; 99285-25; A9270; A9500; G0378; J0360; J0696; J1650; J1885; J1940; J2405; J2765; J2785; J3486; J7050; Q9967

== ENCOUNTER 2024-12-25 12:54 | Emergency (ER) | payer OTHER ==
[~2024-12-25] VITALS: Ht 172.7 cm; Wt 79.4 kg
[~2024-12-25 12:54] MED LIST changes: +ACET325 PO; +FURO20 PO
[2024-12-25 14:28] LABS: BASOPHILS ABSOLUTE AUTO 0.07 K/mm3 (0.00-0.23); BASOPHILS PERCENT AUTO 1 % (0-2); EOSINOPHILS ABSOLUTE AUTO 0.12 K/mm3 (0.00-0.68); EOSINOPHILS PERCENT AUTO 1 % (0-6); Hematocrit 32.7 % (33.0-51.0); Hemoglobin 10.9 g/dL (11.5-16.0); IMMATURE GRAN PERCENT AUTO 1 % (0-1); LYMPHOCYTES ABSOLUTE AUTO 1.75 K/mm3 (0.84-5.20); LYMPHOCYTES PERCENT AUTO 15 % (21-46); MONOCYTES ABSOLUTE AUTO 0.55 K/mm3 (0.16-1.47); MONOCYTES PERCENT AUTO 5 % (4-13); Mean Corpuscular HGB Conc 33.3 g/dL (31.5-36.5); Mean Corpuscular Volume 81 fL (80-100); Mean Platelet Volume 10.2 fL (9.1-12.4); NEUTROPHILS PERCENT AUTO 78 % (41-73); Platelet Count 382 K/mm3 (150-400); RDW Coefficient Variation 13.8 % (11.7-14.2); RDW Standard Deviation 40.3 fL (35.1-46.3); Red Blood Cell Count 4.04 M/mm3 (3.80-5.20); White Blood Cell Count 11.59 K/mm3 (4.00-11.30)
[2024-12-25 14:55] LABS: Alanine Aminotransfer (ALT/SGP 37 U/L (12-78); Albumin/Globulin Ratio 0.9 (0.8-1.8); Alk Phos 60 U/L (50-136); Anion Gap 12 mmol/L (3-11); Aspartate Aminotrans (AST/SGOT 39 U/L (12-37); Beta HCG, Quantitative, Serum <1 mIU/mL (0-3); Bilirubin, Total 0.6 mg/dL (0.1-1.0); Blood Urea Nitrogen 18 mg/dL (8-24); Bun/Creatinine Ratio 34.3 (12.0-20.0); CO2, Blood 21 mmol/L (21-32); Calcium, Blood 8.8 mg/dL (8.5-10.1); Chloride, Blood 109 mmol/L (98-108); Creatinine, Blood 0.53 mg/dL (0.40-1.00); Globulin, Blood 3.5 g/dL (2.2-4.0); Glomerular Filtration Rate 116 (60-); Glucose, Blood 105 mg/dL (70-99); Sodium, Blood 137 mmol/L (136-145); Total Protein, Blood 6.5 g/dL (6.4-8.2)
[2024-12-25] MEDS ORDERED: Furosemide 10 MG/ML 4ML Vial IV ONE (15:55)
[2024-12-25 16:02] LABS: Source, Urine Clean Catch
[2024-12-25 16:23] LABS: Appearance, Urine Clear (Clear); Bilirubin, Urine Neg (Neg); Blood, Urine 4+ (Neg); Color, Urine Yellow (P-Yellow); Glucose Qualitative, Urine Neg (Neg); Ketones, Urine 1+ (Neg); Leukocyte Esterase, Urine 1+ (Neg); Nitrite, Urine Neg (Neg); Protein, Urine 2+ (Neg); Urobilinogen, Urine 1+ (Normal)
[2024-12-25 16:35] LABS: Bacteria Few /hpf; Squamous Epithelial Cells Few /hpf (Few); White Blood Cells, Urine 0-2 /hpf (0-5)
[2024-12-25] MEDS ORDERED: Lasix20 MG PO (17:18)
[2024-12-25] MEDS ORDERED: K-Dur10 MEQ PO (17:18)
[2024-12-25 17:26] VITALS: BP 175/121
[2024-12-25] MEDS ORDERED: Furosemide 20 MG Tab PO ONE (17:40)
== END 2024-12-25 18:47 | disposition home or self-care (01) ==
LOC: ER 12:54
PROVIDERS: Student in an Organized Health Care Education/Training Program
DX: I50.9 Heart failure, unspecified (principal); R60.0 Localized edema; J45.909 Unspecified asthma, uncomplicated; Z88.0 Allergy status to penicillin; Z79.899 Other long term (current) drug therapy
CPT/HCPCS: 71046; 74177; 80053; 81001; 83880; 84484; 84702; 85025; 93005; 93010; 96374-59; 99285-25; A9270; J1940; Q9967

== ENCOUNTER 2025-01-01 14:46 | Emergency (ER) | payer OTHER ==
[~2025-01-01] VITALS: Ht 172.7 cm; Wt 79.4 kg
[~2025-01-01 14:46] MED LIST changes: +K-Dur10 MEQ PO; +Lasix20 MG PO
[2025-01-01 15:32] LABS: BASOPHILS ABSOLUTE AUTO 0.07 K/mm3 (0.00-0.23); BASOPHILS PERCENT AUTO 1 % (0-2); EOSINOPHILS PERCENT AUTO 2 % (0-6); Hematocrit 34.8 % (33.0-51.0); Hemoglobin 11.4 g/dL (11.5-16.0); IMMATURE GRAN ABSOLUTE AUTO 0.02 K/mm3 (0.00-0.10); IMMATURE GRAN PERCENT AUTO 0 % (0-1); LYMPHOCYTES ABSOLUTE AUTO 1.65 K/mm3 (0.84-5.20); LYMPHOCYTES PERCENT AUTO 18 % (21-46); MONOCYTES ABSOLUTE AUTO 0.49 K/mm3 (0.16-1.47); MONOCYTES PERCENT AUTO 5 % (4-13); Mean Corpuscular HGB Conc 32.8 g/dL (31.5-36.5); Mean Corpuscular Volume 83 fL (80-100); Mean Platelet Volume 9.9 fL (9.1-12.4); NEUTROPHILS ABSOLUTE AUTO 6.84 K/mm3 (1.96-9.15); NEUTROPHILS PERCENT AUTO 74 % (41-73); Platelet Count 376 K/mm3 (150-400); RDW Coefficient Variation 13.9 % (11.7-14.2); RDW Standard Deviation 41.1 fL (35.1-46.3); Red Blood Cell Count 4.22 M/mm3 (3.80-5.20); White Blood Cell Count 9.27 K/mm3 (4.00-11.30)
[2025-01-01] MEDS ORDERED: Furosemide 10 MG/ML 4ML Vial IV ONE (15:50)
[2025-01-01] MEDS ORDERED: Ketorolac Tromethamine 15mg Vial IV ONE (15:50)
[2025-01-01] MEDS ORDERED: Acetaminophen 500 MG Tab PO ONE (15:50)
[2025-01-01 15:52] LABS: Albumin, Blood 3.1 g/dL (3.4-5.0); Albumin/Globulin Ratio 0.8 (0.8-1.8); Bilirubin, Total 0.5 mg/dL (0.1-1.0); Calcium, Blood 8.6 mg/dL (8.5-10.1); Creatinine, Blood 0.7 mg/dL (0.40-1.00); Globulin, Blood 3.7 g/dL (2.2-4.0); Potassium, Blood 4.3 mmol/L (3.5-5.5); Total Protein, Blood 6.8 g/dL (6.4-8.2)
[2025-01-01 18:36] VITALS: BP 135/85
== END 2025-01-01 18:35 | disposition home or self-care (01) ==
LOC: ER 14:46
PROVIDERS: Physician Assistant
DX: I11.0 Hypertensive heart disease with heart failure (principal); I50.9 Heart failure, unspecified; I25.2 Old myocardial infarction; J45.909 Unspecified asthma, uncomplicated; G43.909 Migraine, unspecified, not intractable, without status migrainosus; Z88.0 Allergy status to penicillin; Z79.899 Other long term (current) drug therapy
CPT/HCPCS: 71046; 80053; 83880; 84484; 85025; 96374; 96375; 99285-25; A9270; J1885; J1940

== ENCOUNTER 2025-01-12 00:02 | Emergency (ER) | payer OTHER ==
[~2025-01-12] VITALS: Ht 167.6 cm; Wt 79.4 kg
[2025-01-12 00:13] VITALS: BP 180/118
[2025-01-12 00:20] LABS: BASOPHILS ABSOLUTE AUTO 0.08 K/mm3 (0.00-0.23); BASOPHILS PERCENT AUTO 1 % (0-2); EOSINOPHILS ABSOLUTE AUTO 0.38 K/mm3 (0.00-0.68); EOSINOPHILS PERCENT AUTO 3 % (0-6); Hematocrit 30.3 % (33.0-51.0); Hemoglobin 9.6 g/dL (11.5-16.0); IMMATURE GRAN ABSOLUTE AUTO 0.03 K/mm3 (0.00-0.10); IMMATURE GRAN PERCENT AUTO 0 % (0-1); LYMPHOCYTES ABSOLUTE AUTO 2.06 K/mm3 (0.84-5.20); LYMPHOCYTES PERCENT AUTO 18 % (21-46); MONOCYTES ABSOLUTE AUTO 0.77 K/mm3 (0.16-1.47); MONOCYTES PERCENT AUTO 7 % (4-13); Mean Corpuscular HGB 26.3 pg (26.0-34.0); Mean Corpuscular HGB Conc 31.7 g/dL (31.5-36.5); Mean Corpuscular Volume 83 fL (80-100); Mean Platelet Volume 10.5 fL (9.1-12.4); NEUTROPHILS ABSOLUTE AUTO 8.12 K/mm3 (1.96-9.15); NEUTROPHILS PERCENT AUTO 71 % (41-73); Platelet Count 389 K/mm3 (150-400); RDW Standard Deviation 42.5 fL (35.1-46.3); Red Blood Cell Count 3.65 M/mm3 (3.80-5.20); White Blood Cell Count 11.44 K/mm3 (4.00-11.30)
[2025-01-12 00:31] LABS: Source, Urine Clean Catch
[2025-01-12 00:47] LABS: Appearance, Urine Clear (Clear); Bilirubin, Urine Neg (Neg); Blood, Urine 2+ (Neg); Glucose Qualitative, Urine Neg (Neg); Ketones, Urine Neg (Neg); Leukocyte Esterase, Urine Neg (Neg); Nitrite, Urine Neg (Neg); Protein, Urine 2+ (Neg); Urobilinogen, Urine NORM (Normal)
[2025-01-12 00:57] LABS: Color, Urine Pale Yellow (P-Yellow)
[2025-01-12 00:58] LABS: Red Blood Cells, Urine 0-2 /hpf (0-2); White Blood Cells, Urine 0-2 /hpf (0-5)
[2025-01-12 00:59] LABS: Bacteria Few /hpf; Hyaline Casts 0-2 /lpf (0-2); Squamous Epithelial Cells Mod /hpf (Few)
[2025-01-12 01:12] LABS: U Amphetamine Screen Not Detected; U Barbituate Screen Not Detected; U Benzodiazapine Screen Not Detected; U Buprenorphine Screen Not Detected; U Cannabinoids Screen Not Detected; U Cocaine Screen Not Detected; U Methadone Screen Not Detected; U Methamphetamine Screen Not Detected; U Opiates Screen Not Detected; U Oxycodone Screen Not Detected; U Phencyclidine Screen Not Detected
[2025-01-12 01:35] LABS: Albumin, Blood 2.6 g/dL (3.4-5.0); Albumin/Globulin Ratio 0.7 (0.8-1.8); Bilirubin, Total 0.2 mg/dL (0.1-1.0); Bun/Creatinine Ratio 30.4 (12.0-20.0); Calcium, Blood 7.8 mg/dL (8.5-10.1); Creatinine, Blood 0.89 mg/dL (0.40-1.00); Globulin, Blood 3.5 g/dL (2.2-4.0); Potassium, Blood 4.2 mmol/L (3.5-5.5); Total Protein, Blood 6.1 g/dL (6.4-8.2)
[2025-01-12] MEDS ORDERED: Furosemide 10 MG / ML 2ML Vial IV ONE (01:45)
[2025-01-16] MEDS ORDERED: Lasix20 MG PO (23:40)
[2025-01-16] MEDS ORDERED: BENAZEPRIL HCL5 M2 PO (23:40)
== END 2025-01-12 03:23 | disposition home or self-care (01) ==
LOC: ER 00:02
PROVIDERS: Emergency Medicine
DX: I11.0 Hypertensive heart disease with heart failure (principal); I50.9 Heart failure, unspecified; Z91.148 Patient's other noncompliance with medication regimen for other reason; Z88.0 Allergy status to penicillin; Z79.899 Other long term (current) drug therapy
CPT/HCPCS: 71045; 80053; 81001; 83880; 84484; 85025; 93005; 93010; 96374; 99285-25; J1940

== ENCOUNTER 2025-01-22 13:28 | Emergency (ER) | payer OTHER ==
[~2025-01-22] VITALS: Ht 167.6 cm; Wt 79.8 kg
[~2025-01-22 13:28] MED LIST changes: +BENAZEPRIL HCL5 M2 PO
[2025-01-22 14:18] LABS: BASOPHILS ABSOLUTE AUTO 0.09 K/mm3 (0.00-0.23); BASOPHILS PERCENT AUTO 1 % (0-2); EOSINOPHILS ABSOLUTE AUTO 0.22 K/mm3 (0.00-0.68); EOSINOPHILS PERCENT AUTO 2 % (0-6); Hematocrit 31.7 % (33.0-51.0); Hemoglobin 10.3 g/dL (11.5-16.0); IMMATURE GRAN ABSOLUTE AUTO 0.04 K/mm3 (0.00-0.10); IMMATURE GRAN PERCENT AUTO 0 % (0-1); LYMPHOCYTES ABSOLUTE AUTO 1.39 K/mm3 (0.84-5.20); LYMPHOCYTES PERCENT AUTO 12 % (21-46); MONOCYTES ABSOLUTE AUTO 0.58 K/mm3 (0.16-1.47); MONOCYTES PERCENT AUTO 5 % (4-13); Mean Corpuscular HGB 26.1 pg (26.0-34.0); Mean Corpuscular HGB Conc 32.5 g/dL (31.5-36.5); Mean Corpuscular Volume 81 fL (80-100); NEUTROPHILS ABSOLUTE AUTO 9.58 K/mm3 (1.96-9.15); NEUTROPHILS PERCENT AUTO 81 % (41-73); Platelet Count 441 K/mm3 (150-400); RDW Coefficient Variation 14.4 % (11.7-14.2); RDW Standard Deviation 42.1 fL (35.1-46.3); Red Blood Cell Count 3.94 M/mm3 (3.80-5.20)
[2025-01-22 14:41] LABS: Albumin, Blood 2.7 g/dL (3.4-5.0); Albumin/Globulin Ratio 0.8 (0.8-1.8); Bilirubin, Total 0.4 mg/dL (0.1-1.0); Bun/Creatinine Ratio 25.7 (12.0-20.0); Creatinine, Blood 0.82 mg/dL (0.40-1.00); Globulin, Blood 3.2 g/dL (2.2-4.0); Potassium, Blood 4.1 mmol/L (3.5-5.5); Total Protein, Blood 5.9 g/dL (6.4-8.2)
[2025-01-22] MEDS ORDERED: Morphine Sulfate 4 MG/1 ML Injection IV ONE (18:10)
[2025-01-22] MEDS ORDERED: Furosemide 10 MG/ML 4ML Vial IV ONE (18:10)
[2025-01-22 18:30] VITALS: BP 158/121
[2025-01-22] MEDS ORDERED: Acetaminophen 500 MG Tab PO ONE (19:20)
[2025-01-22] MEDS ORDERED: FURO20 PO (19:32)
[2025-01-22] MEDS ORDERED: POTA10T PO (19:34)
== END 2025-01-22 19:51 | disposition home or self-care (01) ==
LOC: ER 13:28
PROVIDERS: Student in an Organized Health Care Education/Training Program
DX: I11.0 Hypertensive heart disease with heart failure (principal); I50.9 Heart failure, unspecified; I25.2 Old myocardial infarction; Z88.0 Allergy status to penicillin; Z79.899 Other long term (current) drug therapy
CPT/HCPCS: 71046; 80053; 83880; 84484; 85025; 93005; 93010; 96374; 99285-25; A9270; J1940

== ENCOUNTER 2025-01-23 18:59 | Emergency (ER) | payer OTHER ==
[~2025-01-23] VITALS: Ht 172.7 cm; Wt 79.8 kg
[~2025-01-23 18:59] MED LIST changes: +POTA10T PO
[2025-01-23 20:46] LABS: BASOPHILS ABSOLUTE AUTO 0.07 K/mm3 (0.00-0.23); BASOPHILS PERCENT AUTO 1 % (0-2); EOSINOPHILS ABSOLUTE AUTO 0.09 K/mm3 (0.00-0.68); EOSINOPHILS PERCENT AUTO 1 % (0-6); Hematocrit 32.5 % (33.0-51.0); Hemoglobin 10.4 g/dL (11.5-16.0); IMMATURE GRAN ABSOLUTE AUTO 0.04 K/mm3 (0.00-0.10); IMMATURE GRAN PERCENT AUTO 0 % (0-1); LYMPHOCYTES PERCENT AUTO 13 % (21-46); MONOCYTES ABSOLUTE AUTO 0.65 K/mm3 (0.16-1.47); MONOCYTES PERCENT AUTO 6 % (4-13); Mean Corpuscular HGB 25.5 pg (26.0-34.0); Mean Corpuscular Volume 80 fL (80-100); Mean Platelet Volume 10.4 fL (9.1-12.4); NEUTROPHILS ABSOLUTE AUTO 8.96 K/mm3 (1.96-9.15); NEUTROPHILS PERCENT AUTO 80 % (41-73); Platelet Count 455 K/mm3 (150-400); RDW Coefficient Variation 14.5 % (11.7-14.2); RDW Standard Deviation 41.7 fL (35.1-46.3); Red Blood Cell Count 4.08 M/mm3 (3.80-5.20); White Blood Cell Count 11.21 K/mm3 (4.00-11.30)
[2025-01-23 21:00] VITALS: BP 159/108
[2025-01-23 21:04] LABS: Albumin, Blood 2.6 g/dL (3.4-5.0); Albumin/Globulin Ratio 0.8 (0.8-1.8); Bilirubin, Total 0.9 mg/dL (0.1-1.0); Bun/Creatinine Ratio 25.6 (12.0-20.0); Calcium, Blood 8.2 mg/dL (8.5-10.1); Creatinine, Blood 0.86 mg/dL (0.40-1.00); Globulin, Blood 3.2 g/dL (2.2-4.0); Potassium, Blood 3.9 mmol/L (3.5-5.5); Total Protein, Blood 5.8 g/dL (6.4-8.2)
== END 2025-01-23 22:35 | disposition home or self-care (01) ==
LOC: ER 18:59
PROVIDERS: Student in an Organized Health Care Education/Training Program
DX: I50.9 Heart failure, unspecified (principal); I10 Essential (primary) hypertension; J45.909 Unspecified asthma, uncomplicated; Z88.0 Allergy status to penicillin; Z79.899 Other long term (current) drug therapy; Z79.811 Long term (current) use of aromatase inhibitors
CPT/HCPCS: 71046; 80053; 83880; 85025; 93005; 93010; 99285-25

== ENCOUNTER 2025-02-08 09:35 | Inpatient (IN) | payer OTHER ==
[~2025-02-08] VITALS: Ht 170.2 cm; Wt 84.9 kg
[2025-02-08] MEDS ORDERED: Furosemide 10 MG/ML 10ML Vial IV ONE (09:45)
[2025-02-08 10:34] LABS: BASOPHILS PERCENT AUTO 1 % (0-2); EOSINOPHILS ABSOLUTE AUTO 0.05 K/mm3 (0.00-0.68); EOSINOPHILS PERCENT AUTO 1 % (0-6); Hematocrit 31.7 % (33.0-51.0); Hemoglobin 10.1 g/dL (11.5-16.0); IMMATURE GRAN ABSOLUTE AUTO 0.03 K/mm3 (0.00-0.10); IMMATURE GRAN PERCENT AUTO 0 % (0-1); LYMPHOCYTES ABSOLUTE AUTO 1.55 K/mm3 (0.84-5.20); LYMPHOCYTES PERCENT AUTO 14 % (21-46); MONOCYTES ABSOLUTE AUTO 0.69 K/mm3 (0.16-1.47); MONOCYTES PERCENT AUTO 6 % (4-13); Mean Corpuscular HGB 24.7 pg (26.0-34.0); Mean Corpuscular HGB Conc 31.9 g/dL (31.5-36.5); Mean Corpuscular Volume 78 fL (80-100); Mean Platelet Volume 10.1 fL (9.1-12.4); NEUTROPHILS ABSOLUTE AUTO 8.65 K/mm3 (1.96-9.15); NEUTROPHILS PERCENT AUTO 78 % (41-73); Platelet Count 411 K/mm3 (150-400); RDW Coefficient Variation 15.5 % (11.7-14.2); RDW Standard Deviation 43.3 fL (35.1-46.3); Red Blood Cell Count 4.09 M/mm3 (3.80-5.20); White Blood Cell Count 11.07 K/mm3 (4.00-11.30)
[2025-02-08 10:51] LABS: Albumin, Blood 2.7 g/dL (3.4-5.0); Albumin/Globulin Ratio 0.8 (0.8-1.8); Bilirubin, Total 0.9 mg/dL (0.1-1.0); Bun/Creatinine Ratio 21.7 (12.0-20.0); Calcium, Blood 8.3 mg/dL (8.5-10.1); Creatinine, Blood 0.88 mg/dL (0.40-1.00); Globulin, Blood 3.4 g/dL (2.2-4.0); Potassium, Blood 3.5 mmol/L (3.5-5.5); Total Protein, Blood 6.1 g/dL (6.4-8.2)
[2025-02-08] MEDS ORDERED: Aspirin 325 MG Tab PO ONE (12:15)
[2025-02-08] MEDS ORDERED: Enoxaparin 40 MG/0.4 ML SYR SC SCH (14:00)
[2025-02-08 16:00] VITALS: BP 177/124
[2025-02-08] MEDS ORDERED: TOPI100 PO ×2 (16:06→16:07)
[2025-02-08] MEDS ORDERED: SERT25 (16:08)
[2025-02-08] MEDS ORDERED: Labetalol HCL 5 MG/ML 4ML Injection (Single Dose) IV PRN (16:55)
[2025-02-08 17:09] VITALS: BP 190/110
[2025-02-08 17:58] LABS: Bun/Creatinine Ratio 20.8 (12.0-20.0); Calcium, Blood 8.9 mg/dL (8.5-10.1); Creatinine, Blood 0.92 mg/dL (0.40-1.00); Potassium, Blood 3.5 mmol/L (3.5-5.5)
--- NOTE | 2025-02-08 18:19 | NUR ---
SHIFT SUMMARY: PT ARRIVED TO PCU 14 VIA ER [facility]. PT A&OX4. FOLLOWS COMMANDS. PT WAS ABLE TO STAND AND WALK TO HOSPITAL BED ON HER OWN. PT WAS HYPERTENSIVE ON ARRIVAL AND WAS MEDICATED PER EMAR ORDERS. PTS BLOOD PRESSURE RESPONDED AND IS NOW 128/87. NO SIGNIFICANT EVENTS HAPPENED SINCE ARRIVAL. WILL CONTINUE TO CARE FOR PT TILL END OF SHIFT.
[2025-02-08 19:33] VITALS: BP 137/87
--- NOTE | 2025-02-08 19:49 | NUR ---
Care Assumend now for this patient. Report received from Nasiam BRAUN. Patient is able to participate in bedside report. Continue Care.
[2025-02-08] MEDS ORDERED: Topiramate 100 MG Tab PO SCH (21:00)
[2025-02-08] MEDS ORDERED: Topiramate 25 MG Tab PO SCH (21:00)
[2025-02-09 00:06] VITALS: BP 149/91
[2025-02-09] MEDS ORDERED: HYDROcodone 5-APAP 325 TAB PO PRN (01:20)
[2025-02-09 04:03] LABS: BASOPHILS ABSOLUTE AUTO 0.09 K/mm3 (0.00-0.23); BASOPHILS PERCENT AUTO 1 % (0-2); EOSINOPHILS ABSOLUTE AUTO 0.24 K/mm3 (0.00-0.68); EOSINOPHILS PERCENT AUTO 3 % (0-6); Hematocrit 30.4 % (33.0-51.0); Hemoglobin 9.5 g/dL (11.5-16.0); IMMATURE GRAN ABSOLUTE AUTO 0.02 K/mm3 (0.00-0.10); IMMATURE GRAN PERCENT AUTO 0 % (0-1); LYMPHOCYTES ABSOLUTE AUTO 1.82 K/mm3 (0.84-5.20); LYMPHOCYTES PERCENT AUTO 20 % (21-46); MONOCYTES ABSOLUTE AUTO 0.79 K/mm3 (0.16-1.47); MONOCYTES PERCENT AUTO 9 % (4-13); Mean Corpuscular HGB 24.4 pg (26.0-34.0); Mean Corpuscular HGB Conc 31.3 g/dL (31.5-36.5); Mean Corpuscular Volume 78 fL (80-100); Mean Platelet Volume 10.4 fL (9.1-12.4); NEUTROPHILS ABSOLUTE AUTO 6.11 K/mm3 (1.96-9.15); NEUTROPHILS PERCENT AUTO 67 % (41-73); Platelet Count 369 K/mm3 (150-400); RDW Coefficient Variation 15.6 % (11.7-14.2); RDW Standard Deviation 43.2 fL (35.1-46.3); White Blood Cell Count 9.07 K/mm3 (4.00-11.30)
[2025-02-09 04:27] LABS: Albumin, Blood 2.6 g/dL (3.4-5.0); Albumin/Globulin Ratio 0.8 (0.8-1.8); Bilirubin, Total 0.7 mg/dL (0.1-1.0); Bun/Creatinine Ratio 19.6 (12.0-20.0); Calcium, Blood 8.1 mg/dL (8.5-10.1); Creatinine, Blood 1.02 mg/dL (0.40-1.00); Globulin, Blood 3.1 g/dL (2.2-4.0); Potassium, Blood 3.2 mmol/L (3.5-5.5); Total Protein, Blood 5.7 g/dL (6.4-8.2)
[2025-02-09 04:45] VITALS: BP 143/100
--- NOTE | 2025-02-09 05:03 | NUR ---
PATIENT DID NOT SLEEP WELL LAST NIGHT. UP MOST OF THE NIGHT LOOKING AT HER PHONE TALKING ABOUT [employer] AND WHEN SHE WAS IN [place]. PATIENT HAS INCREASED EDEMA THROUGHOUT HER ENTIRE BODY. THIS MORNING COMPLAINS THAT HER SKIN IS TIGHT AND PAINFUL NORCO GIVEN FOR PAIN PATIENT HAD A 10 SECOND RUN OF SVT WHILE MOANING HOW BAD HER PAIN WAS. BLOOD PRESSURE SLIGHTLY ELEVATED TONIGHT. CONTINUE CARE
[2025-02-09 08:03] VITALS: BP 146/111
[2025-02-09] MEDS ORDERED: Lisinopril 10 MG Tab PO SCH (09:00)
[2025-02-09] MEDS ORDERED: Potassium Chloride 20 MEQ TabCR PO SCH (09:00)
[2025-02-09] MEDS ORDERED: Topiramate 100 MG Tab PO SCH (09:00)
[2025-02-09] MEDS ORDERED: Furosemide 10 MG / ML 2ML Vial IV SCH (09:00)
[2025-02-09 12:01] VITALS: BP 136/98
[2025-02-09 16:32] VITALS: BP 136/98
--- NOTE | 2025-02-09 17:24 | NUR ---
SHIFT SUMMARY: PT A&OX4. FOLLOWS COMMANDS AND MAKES NEEDS KNOWN TO STAFF. PT GOT UP THE THE BATHROOM INDEPENDENTLY ALL DAY. PT SINUS ON THE MONITOR. REPORTED CP TO THE R SIDE OF HER CHEST THIS AM OTHERWISE HAS DENIED ANY. REPORTS SLIGHT SOB. O2 SATS >95% ON RA. PT RECIEVED LASIX THIS AND HAS HAD AN ADEQUATE AMOUNT OF URINE OUTPUT. AN ADDITIONAL DOES WAS ORDERED FOR THIS EVENING. PT IS STILL EDEMATOUS ALL OVER HER BODY AND STATES THAT HER SKIN FEELS TIGHT AND HURTS. PT HAS BEEN SITTING IN BED AND IN HER CAIR ALL DAY KEEPING BUSY ON HER PHONE. SHE TOOK A SHOWER BUT HAS NOT NEEDED ANYTHING ELSE TODAY. NO SIGNIFICANT EVENTS OR ACUTE CHANGES HAVE HAPPENED DURING THIS SHIFT. WILL CONTINUE TO CARE FOR PT TILL END OF SHIFT.
[2025-02-09] MEDS ORDERED: Furosemide 10 MG/ML 4ML Vial IV SCH (18:00)
--- NOTE | 2025-02-09 19:16 | NUR ---
CARE ASSUMED NOW FOR THIS PATIENT. REPORT RECEIVED FROM RADHA BRAUN. PATIENT ABLE TO PARTICIPATE IN BEDSIDE REPORT. CONTINUE CARE.
[2025-02-09 19:45] VITALS: BP 137/103
[2025-02-10] VITALS (9 sets, daily range): BP systolic 121–154; BP diastolic 81–107
--- NOTE | 2025-02-10 00:01 | NUR ---
PATIENT ORDERD MALACHI'S ABDULAZIZ SWEENEY AT 2330 THAT WAS DELIVERED TO HOSPITAL. EDUCATED ON THE IMPORTANCE OF LOW SODIUM DIET WITH HER CHF AND INCREASED EDEMA. NEEDS REINFORCEMENT ON SUBJECT WILL SUGGEST DIETARY CONSULT. CONTINUE CARE
--- NOTE | 2025-02-10 04:59 | NUR ---
PATIENT AWAKE MOST OF NIGHT. STAYED IN RECLINER CHAIR ALL NIGHT. ORDERED PIZZA FROM [employer]. URINE OUTPUT DECREASED AFTER FIRST TWO VOIDS OF OVER 1000 ML. MEDICATED TWICE WITH NORCO FOR PAIN. BREATHS HEAVILY WITH ACTIVITY BUT O2 SATURATIONS STAY IN THE HIGH 90'S-100. INDEPENDANT IN HER ROOM. CONTINUE CARE
--- NOTE | 2025-02-10 07:23 | NUR ---
PATIENT STARTED COMPLAINING OF CHEST PAIN AT 0640 THIS MORNING. NURSE AIDE WENT INTO ROOM AND SHE IS GRUNTING AND STATED SHE HAS CHEST PAIN. EKG DONE WHICH IS NSR WITH NO ST ELEVATION. LUNGS ARE CTA. CALL TO DAY PROVIDER. TROPONIN ORDERED, AND CHEST X-RAY. PATIENT HAD JUST HAD NORCO AT 0545. O2 SATURATIONS 98%. BLOOD PRESSURES 140'S OVER 100'S. NO CHANGE FROM THE NIGHTLY PRESSURES. PATIENT GRUNT BREATHS AND ROCKS HERSELF WHICH IS HER NORMAL. WE ARE DOING EKG PATIENT STATES WHILE LOOKING OUT THE DOOR "OH HE IS CUTE!" REFERRING TO A MALE WALKING PAST HER ROOM. CONTINUES LOOKING AT HER PHONE AND GRUNTING BREATHING. REPORT HANDED OFF TO RADHA ROWLEY RN. CONTINUE CARE.
[2025-02-10 08:15] LABS: BASOPHILS ABSOLUTE AUTO 0.09 K/mm3 (0.00-0.23); BASOPHILS PERCENT AUTO 1 % (0-2); EOSINOPHILS ABSOLUTE AUTO 0.38 K/mm3 (0.00-0.68); EOSINOPHILS PERCENT AUTO 4 % (0-6); Hematocrit 30.3 % (33.0-51.0); Hemoglobin 9.3 g/dL (11.5-16.0); IMMATURE GRAN ABSOLUTE AUTO 0.02 K/mm3 (0.00-0.10); IMMATURE GRAN PERCENT AUTO 0 % (0-1); LYMPHOCYTES ABSOLUTE AUTO 2.25 K/mm3 (0.84-5.20); LYMPHOCYTES PERCENT AUTO 24 % (21-46); MONOCYTES ABSOLUTE AUTO 0.87 K/mm3 (0.16-1.47); MONOCYTES PERCENT AUTO 9 % (4-13); Mean Corpuscular HGB 24.1 pg (26.0-34.0); Mean Corpuscular HGB Conc 30.7 g/dL (31.5-36.5); Mean Corpuscular Volume 79 fL (80-100); NEUTROPHILS ABSOLUTE AUTO 5.94 K/mm3 (1.96-9.15); NEUTROPHILS PERCENT AUTO 62 % (41-73); Platelet Count 385 K/mm3 (150-400); RDW Coefficient Variation 15.8 % (11.7-14.2); RDW Standard Deviation 44.5 fL (35.1-46.3); Red Blood Cell Count 3.86 M/mm3 (3.80-5.20); White Blood Cell Count 9.55 K/mm3 (4.00-11.30)
[2025-02-10 08:37] LABS: Bun/Creatinine Ratio 20.2 (12.0-20.0); Creatinine, Blood 1.09 mg/dL (0.40-1.00); Magnesium, Blood 1.9 mg/dL (1.6-2.4)
[2025-02-10 15:02] LABS: U Amphetamine Screen Not Detected; U Barbituate Screen Not Detected; U Benzodiazapine Screen Not Detected; U Buprenorphine Screen Not Detected; U Cannabinoids Screen DETECTED; U Cocaine Screen Not Detected; U Methadone Screen Not Detected; U Methamphetamine Screen Not Detected; U Opiates Screen DETECTED; U Oxycodone Screen Not Detected; U Phencyclidine Screen Not Detected
--- NOTE | 2025-02-10 17:42 | NUR ---
SHIFT SUMMARY: PT A&OX4. FOLLOWS COMMANDS AND MAKES NEEDS KNOWN TO STAFF. PT HAS BEEN INDEPENDENT IN HER ROOM ALL DAY AND HAS DENIED ANY NEEDS. PT COMPLAINED OF CP THIS AM AFTER EATING DOMINOS LASNIGHT THAT RESOLVED BY LATE MORNING. AT THIS TIME PT DENIES ANY CP, PRESSURE, TIGHTNESS OR SOB. PT SITTING IN RECLINER CHAIR BUSY ON HER PHONE ALL DAY. PT HAS NOT BEEN COMPLAINT WITH URINATING IN THE URINE HAT THROUGHOUT THE DAY. PTS HAT WAS FOUND IN THE TOILET SEVERAL TIMES THROUGHOUT THE DAY. PT REPEATIDLY REMINDED TO LEAVE HAT IN TOILET AND EDUCATED ON ITS IMPORTANCE. PT DENIES TAKING HAT OUT OF THE TOILET. VITAL SIGNS HAVE BEEN STABLE. NO OTHER SIGNIFICANT EVENTS HAPPENED DURING THIS SHIFT. WILL CONTINUE TO CARE FOR PT TILL END OF SHIFT.
--- NOTE | 2025-02-10 19:27 | NUR ---
CARE ASSUMED FOR THIS PATIENT. REPORT RECEIVED FROM RADHA BRAUN. PATIENT ABLE TO PARTICIPATE IN BEDSIDE REPORT. CONTINUE CARE
--- NOTE | 2025-02-10 19:41 | NUR ---
PATIENT IN BATHROOM FOR OVER 20 MINUTES. ASKED IF SHE WAS OK PATIENT STATES "YES". MAKING NOISES IN THE BATHROOM BUT STATES SHE IS OK. CONTINUE TO MONITOR.
--- NOTE | 2025-02-10 20:31 | NUR ---
PATIENT BEING TRANSFERRED TO ROOM 304. REPORT GIVEN TO TIM BRAUN ON MEDICAL FLOOR. PATIENT AWARE OF ROOM CHANGE.
[2025-02-11 05:39] VITALS: BP 145/98
--- NOTE | 2025-02-11 06:02 | NUR ---
SHIFT SUMMARY: Pt admitted for CHF exacerbation and is a DNR. is alert and able to make needs known. ADLs have been IND. denies pain or discomfort when asked. Telly reports sinus in the 80s with PACs.
[2025-02-11 09:09] VITALS: BP 124/84
[2025-02-11 12:13] VITALS: BP 142/100
[2025-02-11] MEDS ORDERED: Benazepril HCl10 MG PO (12:43)
[2025-02-11] MEDS ORDERED: POTA10T PO (12:43)
[2025-02-11] MEDS ORDERED: FURO20 PO (12:43)
[2025-02-11 16:17] VITALS: BP 141/90
--- NOTE | 2025-02-11 19:47 | NUR ---
SUMMARY- PT A/O X4, INDEPENDANT IN ROOM, STEADY ON FEET. PT HAS NEUROLOGICAL TICS, STASTIC ARM MOVEMENTS AND VERBAL NONSENSE, TALKS TO HERSELF AT TIMES. PT IS VERBAL AND COOPERATIVE, USES CALL LIGHT TO MAKE NEEDS KNOWN. LUNGS DIM BASES, STATTERED RHONCHI MID RANGE, FREQ MOIST COUGH. PT STATES SHE IS HAVING A HARD TIME CLEARING SECRETIONS. ORDER RECEIVED FOR MUCINEX. PT C/O HEADACHE AND PAIN IN [place] FROM COUGHING. MEDICATED WITH NORCO WITH RELEIF. PT DIURESING AND VOIDING IN BATHROOM, COMPLIANT WITH FLUID RESTRICTION. VSS, TELE DC'D, STABLE SR SINCE ADMIT. REPORT TO HOLA RN
[2025-02-11 20:17] VITALS: BP 130/86
[2025-02-11] MEDS ORDERED: GuaiFENesin 600 MG TabCR PO SCH (21:00)
[2025-02-12 04:56] LABS: BASOPHILS ABSOLUTE AUTO 0.08 K/mm3 (0.00-0.23); BASOPHILS PERCENT AUTO 1 % (0-2); EOSINOPHILS ABSOLUTE AUTO 0.36 K/mm3 (0.00-0.68); EOSINOPHILS PERCENT AUTO 4 % (0-6); Hemoglobin 9.3 g/dL (11.5-16.0); IMMATURE GRAN ABSOLUTE AUTO 0.02 K/mm3 (0.00-0.10); IMMATURE GRAN PERCENT AUTO 0 % (0-1); LYMPHOCYTES ABSOLUTE AUTO 1.58 K/mm3 (0.84-5.20); LYMPHOCYTES PERCENT AUTO 18 % (21-46); MONOCYTES ABSOLUTE AUTO 0.92 K/mm3 (0.16-1.47); MONOCYTES PERCENT AUTO 11 % (4-13); Mean Corpuscular HGB 24.6 pg (26.0-34.0); Mean Corpuscular Volume 79 fL (80-100); Mean Platelet Volume 10.7 fL (9.1-12.4); NEUTROPHILS ABSOLUTE AUTO 5.78 K/mm3 (1.96-9.15); NEUTROPHILS PERCENT AUTO 66 % (41-73); Platelet Count 432 K/mm3 (150-400); RDW Coefficient Variation 15.6 % (11.7-14.2); RDW Standard Deviation 44.1 fL (35.1-46.3); Red Blood Cell Count 3.78 M/mm3 (3.80-5.20); White Blood Cell Count 8.74 K/mm3 (4.00-11.30)
[2025-02-12 05:21] LABS: Bun/Creatinine Ratio 20.4 (12.0-20.0); Calcium, Blood 8.5 mg/dL (8.5-10.1); Creatinine, Blood 0.98 mg/dL (0.40-1.00); Potassium, Blood 3.8 mmol/L (3.5-5.5)
[2025-02-12 06:15] VITALS: BP 140/93
--- NOTE | 2025-02-12 06:41 | NUR ---
PATIENT APPEARED TO HAVE SLEPT MOST OF THE NIGHT. GOOD URINE OUTPUT. STAYS IN THE BATHROOM FOR LONG PERIODS OF TIME WHEN SHE IS IN THE BATHROOM. MEDICATED TIMES ONE WITH NORCO FOR PAIN. NO NEW ISSUES. CONTINUE CARE
[2025-02-12 08:12] VITALS: BP 147/86
--- NOTE | 2025-02-12 11:59 | NUR ---
PT HAS HOME IBUPROPHEN BOTTLE AT BEDSIDE. PLACED IN PILL DRAWER. PT UPSET.
[2025-02-12 15:20] VITALS: BP 140/95
[2025-02-12] MEDS ORDERED: Loperamide HCl 2 MG Cap PO PRN (16:45)
--- NOTE | 2025-02-12 18:16 | NUR ---
NO ACUTE CHANGES THIS SHIFT. IV DIURETICS CONTINUED, CALLS APPROPRIPRIATE. PT BECAME VERY UPSET DUE TO OTC IBUPROPHEN REMOVED FROM ROOM. EDUCATION PROVIDED ON WHY IT IS UNSAFE TO TAKE MEDICATIONS WITHOUT AN ORDER IN HOSPITAL. PT TEARFUL AND UPSET OVER SITUATION. MEDICATION IN DRAWER. INDEPENDENT IN THE ROOM.
[2025-02-12 19:24] VITALS: BP 143/109
[2025-02-13 03:49] VITALS: BP 110/67
--- NOTE | 2025-02-13 06:13 | NUR ---
SHIFT SUMMARY; PATIENT SLEPT IN SHORT INTERVALS, EASILY AGITATED. VERY TALKATIVE, RAMBLES. HS MEDS GIVEN, 1 ELEVATED BP D/T PATIENT STRESSING ABOUT HER MEDS. REMAINS ON FREE WATER RESTRICTIONS.
[2025-02-13 08:00] VITALS: BP 137/90
[2025-02-13] MEDS ORDERED: Mupirocin 2% Ointment 22 GM TOP SCH (14:00)
[2025-02-13 15:04] VITALS: BP 120/83
[2025-02-13 20:03] VITALS: BP 114/82
[2025-02-13] MEDS ORDERED: Hydrocortisone 1% Ointment 30 GM Tube TOP SCH (21:00)
[2025-02-14] VITALS (7 sets, daily range): BP systolic 74–133; BP diastolic 44–86
[2025-02-14 05:46] LABS: Bun/Creatinine Ratio 22.9 (12.0-20.0); Calcium, Blood 9.2 mg/dL (8.5-10.1); Creatinine, Blood 0.96 mg/dL (0.40-1.00); Potassium, Blood 4.9 mmol/L (3.5-5.5)
[2025-02-14] MEDS ORDERED: LOPE2C PO (15:16)
[2025-02-14] MEDS ORDERED: MUPIROCIN1 G1 TOP (15:16)
[2025-02-14] MEDS ORDERED: CORTISONE60 GM TOP (15:18)
--- NOTE | 2025-02-14 19:53 | NUR ---
THIS RN REVIEWED AND AGREES WITH STUDENT RN SHIFT ASSESSMENT.
--- NOTE | 2025-02-14 19:54 | NUR ---
LATE ENTRY- DISCHARGED HOME WITH HOME HEALTH. PT UNRECEPTIVE TO DISCHARGE INSTRUCTION AND EDUCATION. DENIES CONCERNS OR QUESTIONS RELATED TO DISCHARGE INSTRUCTIONS. ALL PERSONAL ITEMS RETURNED TO PT AT DISCHARGE
== END 2025-02-14 16:07 | disposition home or self-care (01) | DRG 291 ==
LOC: ER 09:35 → ERHOLD 13:49 → MEDS 13:49 → PCU 15:53 → MEDS 02-10 20:36
PROVIDERS: Family Medicine; Student in an Organized Health Care Education/Training Program; ADMIT Internal Medicine
DX: I11.0 Hypertensive heart disease with heart failure (principal); I50.33 Acute on chronic diastolic (congestive) heart failure; F41.8 Other specified anxiety disorders; F15.11 Other stimulant abuse, in remission; L01.00 Impetigo, unspecified; Z66 Do not resuscitate; J45.909 Unspecified asthma, uncomplicated; R51.9 Headache, unspecified; T50.1X6A Underdosing of loop [high-ceiling] diuretics, initial encounter; Z91.138 Patient's unintentional underdosing of medication regimen for other reason; Z88.0 Allergy status to penicillin; I25.2 Old myocardial infarction
CPT/HCPCS: 36415; 71045; 80048; 80053; 83735; 83880; 84484; 85025; 93005; 93010; 94760; 96374; 99285-25; A9270; J1650; J1940

== ENCOUNTER 2025-03-12 14:55 | Emergency (ER) | payer OTHER ==
[~2025-03-12] VITALS: Ht 167.6 cm; Wt 79.8 kg
[~2025-03-12 14:55] MED LIST changes: +CORTISONE60 GM TOP; +MUPIROCIN1 G1 TOP; +SERT25; +TOPI100 PO
[2025-03-12 15:34] LABS: BASOPHILS ABSOLUTE AUTO 0.08 K/mm3 (0.00-0.23); BASOPHILS PERCENT AUTO 1 % (0-2); EOSINOPHILS ABSOLUTE AUTO 0.07 K/mm3 (0.00-0.68); EOSINOPHILS PERCENT AUTO 1 % (0-6); Hematocrit 33.6 % (33.0-51.0); Hemoglobin 10.6 g/dL (11.5-16.0); IMMATURE GRAN ABSOLUTE AUTO 0.04 K/mm3 (0.00-0.10); IMMATURE GRAN PERCENT AUTO 0 % (0-1); LYMPHOCYTES ABSOLUTE AUTO 1.85 K/mm3 (0.84-5.20); LYMPHOCYTES PERCENT AUTO 13 % (21-46); MONOCYTES ABSOLUTE AUTO 0.66 K/mm3 (0.16-1.47); MONOCYTES PERCENT AUTO 5 % (4-13); Mean Corpuscular HGB 24.1 pg (26.0-34.0); Mean Corpuscular HGB Conc 31.5 g/dL (31.5-36.5); Mean Corpuscular Volume 77 fL (80-100); Mean Platelet Volume 9.5 fL (9.1-12.4); NEUTROPHILS ABSOLUTE AUTO 11.19 K/mm3 (1.96-9.15); NEUTROPHILS PERCENT AUTO 81 % (41-73); Platelet Count 418 K/mm3 (150-400); RDW Coefficient Variation 17.2 % (11.7-14.2); RDW Standard Deviation 47.7 fL (35.1-46.3); Red Blood Cell Count 4.39 M/mm3 (3.80-5.20); White Blood Cell Count 13.89 K/mm3 (4.00-11.30)
[2025-03-12 15:55] LABS: Albumin, Blood 3.4 g/dL (3.4-5.0); Albumin/Globulin Ratio 0.9 (0.8-1.8); Bilirubin, Total 0.9 mg/dL (0.1-1.0); Bun/Creatinine Ratio 26.1 (12.0-20.0); Calcium, Blood 8.8 mg/dL (8.5-10.1); Creatinine, Blood 0.81 mg/dL (0.40-1.00); Globulin, Blood 3.6 g/dL (2.2-4.0); Potassium, Blood 3.5 mmol/L (3.5-5.5)
[2025-03-12] MEDS ORDERED: Ondansetron HCl 2 MG / ML 2ML Vial IV ONE (18:10)
[2025-03-12] MEDS ORDERED: Morphine Sulfate 4 MG/1 ML Injection IV ONE (18:10)
[2025-03-12] MEDS ORDERED: Furosemide 10 MG/ML 4ML Vial IV ONE (19:05)
[2025-03-12] MEDS ORDERED: Droperidol 5 mg/2 ml Vial IV ONE (19:05)
[2025-03-12 20:00] VITALS: BP 158/97
== END 2025-03-12 20:40 | disposition home or self-care (01) ==
LOC: ER 14:55
PROVIDERS: Emergency Medicine
DX: R10.9 Unspecified abdominal pain (principal); R11.2 Nausea with vomiting, unspecified; I10 Essential (primary) hypertension; I25.2 Old myocardial infarction; I50.9 Heart failure, unspecified; Z88.0 Allergy status to penicillin; Z79.899 Other long term (current) drug therapy; Z96.653 Presence of artificial knee joint, bilateral
CPT/HCPCS: 71046; 74177; 80053; 83690; 83880; 84484; 85025; 93005; 93010; 96374-59; 96375; 99285-25; J1790; J1938; J2270; J2405; Q9967

== ENCOUNTER 2025-03-15 14:30 | Emergency (ER) | payer OTHER ==
[~2025-03-15] VITALS: Ht 167.6 cm; Wt 79.8 kg
[2025-03-15] MEDS ORDERED: Acetaminophen 325 MG TABLET PO ONE (15:10)
[2025-03-15] MEDS ORDERED: Ondansetron HCl 2 MG / ML 2ML Vial IV ONE (15:10)
[2025-03-15 15:25] LABS: BASOPHILS ABSOLUTE AUTO 0.07 K/mm3 (0.00-0.23); BASOPHILS PERCENT AUTO 1 % (0-2); EOSINOPHILS ABSOLUTE AUTO 0.25 K/mm3 (0.00-0.68); EOSINOPHILS PERCENT AUTO 2 % (0-6); IMMATURE GRAN ABSOLUTE AUTO 0.04 K/mm3 (0.00-0.10); IMMATURE GRAN PERCENT AUTO 0 % (0-1); LYMPHOCYTES ABSOLUTE AUTO 1.57 K/mm3 (0.84-5.20); LYMPHOCYTES PERCENT AUTO 15 % (21-46); MONOCYTES ABSOLUTE AUTO 0.55 K/mm3 (0.16-1.47); MONOCYTES PERCENT AUTO 5 % (4-13); Mean Corpuscular HGB 23.6 pg (26.0-34.0); Mean Corpuscular HGB Conc 30.3 g/dL (31.5-36.5); Mean Corpuscular Volume 78 fL (80-100); Mean Platelet Volume 10.1 fL (9.1-12.4); NEUTROPHILS ABSOLUTE AUTO 8.14 K/mm3 (1.96-9.15); NEUTROPHILS PERCENT AUTO 77 % (41-73); Platelet Count 353 K/mm3 (150-400); RDW Coefficient Variation 17.2 % (11.7-14.2); RDW Standard Deviation 47.9 fL (35.1-46.3); Red Blood Cell Count 4.24 M/mm3 (3.80-5.20); White Blood Cell Count 10.62 K/mm3 (4.00-11.30)
[2025-03-15 15:44] LABS: Albumin, Blood 3.2 g/dL (3.4-5.0); Albumin/Globulin Ratio 0.9 (0.8-1.8); Bilirubin, Total 0.5 mg/dL (0.1-1.0); Bun/Creatinine Ratio 23.4 (12.0-20.0); Calcium, Blood 8.4 mg/dL (8.5-10.1); Creatinine, Blood 0.77 mg/dL (0.40-1.00); Globulin, Blood 3.5 g/dL (2.2-4.0); Potassium, Blood 3.8 mmol/L (3.5-5.5); Total Protein, Blood 6.7 g/dL (6.4-8.2)
[2025-03-15] MEDS ORDERED: OxyCODONE HCL 5 MG TAB PO ONE (17:00)
[2025-03-15] MEDS ORDERED: Promethazine HCl 25 MG Tab PO ONE (17:00)
[2025-03-15] MEDS ORDERED: Milk 150ML/Molasses 150ML (300ML Total) PR ONE (17:10)
[2025-03-15 17:25] LABS: Source, Urine Clean Catch
[2025-03-15 17:27] LABS: Appearance, Urine Clear (Clear); Bilirubin, Urine Neg (Neg); Blood, Urine Neg (Neg); Color, Urine Yellow (P-Yellow); Glucose Qualitative, Urine Neg (Neg); Ketones, Urine Neg (Neg); Leukocyte Esterase, Urine Neg (Neg); Nitrite, Urine Neg (Neg); Protein, Urine 2+ (Neg); Urobilinogen, Urine NORM (Normal)
[2025-03-15 17:34] LABS: Amorphous Light (0-Heavy); Bacteria Rare /hpf; Red Blood Cells, Urine 0-2 /hpf (0-2); Squamous Epithelial Cells Few /hpf (Few); White Blood Cells, Urine 0-2 /hpf (0-5)
[2025-03-15] MEDS ORDERED: Magnesium Citrate 300 ML BTL PO ONE (17:50)
[2025-03-15] MEDS ORDERED: RX Prepack 6 Tabs Oxycodone 5mg UD ONE (17:50)
[2025-03-15] MEDS ORDERED: PROM25 PO (17:52)
[2025-03-15 18:09] VITALS: BP 172/118
== END 2025-03-15 18:10 | disposition home or self-care (01) ==
LOC: ER 14:30
PROVIDERS: Student in an Organized Health Care Education/Training Program
DX: K59.00 Constipation, unspecified (principal); R11.2 Nausea with vomiting, unspecified; R10.31 Right lower quadrant pain; R10.32 Left lower quadrant pain; G43.909 Migraine, unspecified, not intractable, without status migrainosus; I25.2 Old myocardial infarction; I10 Essential (primary) hypertension; J45.909 Unspecified asthma, uncomplicated; Z79.899 Other long term (current) drug therapy; Z88.0 Allergy status to penicillin
CPT/HCPCS: 71046; 74177; 80053; 81001; 83880; 84484; 84703; 85025; 93005; 93010; 96374-59; 99284-25; A9270; J2405; Q9967

== ENCOUNTER 2025-03-18 18:06 | Emergency (ER) | payer OTHER ==
[~2025-03-18] VITALS: Ht 167.6 cm; Wt 79.8 kg
[2025-03-18 19:22] LABS: BASOPHILS ABSOLUTE AUTO 0.06 K/mm3 (0.00-0.23); BASOPHILS PERCENT AUTO 1 % (0-2); EOSINOPHILS ABSOLUTE AUTO 0.29 K/mm3 (0.00-0.68); EOSINOPHILS PERCENT AUTO 3 % (0-6); Hematocrit 30.9 % (33.0-51.0); Hemoglobin 9.3 g/dL (11.5-16.0); IMMATURE GRAN ABSOLUTE AUTO 0.03 K/mm3 (0.00-0.10); IMMATURE GRAN PERCENT AUTO 0 % (0-1); LYMPHOCYTES ABSOLUTE AUTO 1.63 K/mm3 (0.84-5.20); LYMPHOCYTES PERCENT AUTO 17 % (21-46); MONOCYTES ABSOLUTE AUTO 0.68 K/mm3 (0.16-1.47); MONOCYTES PERCENT AUTO 7 % (4-13); Mean Corpuscular HGB 23.8 pg (26.0-34.0); Mean Corpuscular HGB Conc 30.1 g/dL (31.5-36.5); Mean Corpuscular Volume 79 fL (80-100); Mean Platelet Volume 10.6 fL (9.1-12.4); NEUTROPHILS ABSOLUTE AUTO 7.12 K/mm3 (1.96-9.15); NEUTROPHILS PERCENT AUTO 73 % (41-73); Platelet Count 337 K/mm3 (150-400); RDW Standard Deviation 48.2 fL (35.1-46.3); White Blood Cell Count 9.81 K/mm3 (4.00-11.30)
[2025-03-18 19:57] LABS: Albumin/Globulin Ratio 0.9 (0.8-1.8); Bilirubin, Total 0.5 mg/dL (0.1-1.0); Bun/Creatinine Ratio 17.1 (12.0-20.0); Calcium, Blood 8.4 mg/dL (8.5-10.1); Creatinine, Blood 0.82 mg/dL (0.40-1.00); Globulin, Blood 3.2 g/dL (2.2-4.0); Potassium, Blood 3.9 mmol/L (3.5-5.5); Total Protein, Blood 6.2 g/dL (6.4-8.2)
[2025-03-18] MEDS ORDERED: Bumetanide 0.25 MG/ML 10ML Vial IM ONE (21:10)
[2025-03-18 21:15] VITALS: BP 185/105
[2025-03-18] MEDS ORDERED: BUME1 PO (21:18)
[2025-03-18] MEDS ORDERED: Bumetanide 1 MG Tab PO ONE (21:20)
== END 2025-03-18 21:30 | disposition home or self-care (01) ==
LOC: ER 18:06
PROVIDERS: Emergency Medicine
DX: I11.0 Hypertensive heart disease with heart failure (principal); I50.9 Heart failure, unspecified; R10.11 Right upper quadrant pain; I25.10 Atherosclerotic heart disease of native coronary artery without angina pectoris; I25.2 Old myocardial infarction; Z88.0 Allergy status to penicillin; Z79.899 Other long term (current) drug therapy
CPT/HCPCS: 36415; 80053; 83690; 85025; 99284; A9270

== ENCOUNTER 2025-03-20 20:57 | Emergency (ER) | payer OTHER ==
[~2025-03-20] VITALS: Ht 167.6 cm; Wt 79.4 kg
[~2025-03-20 20:57] MED LIST changes: +BUME1 PO
[2025-03-20 22:05] LABS: BASOPHILS ABSOLUTE AUTO 0.06 K/mm3 (0.00-0.23); BASOPHILS PERCENT AUTO 1 % (0-2); EOSINOPHILS ABSOLUTE AUTO 0.22 K/mm3 (0.00-0.68); EOSINOPHILS PERCENT AUTO 2 % (0-6); Hematocrit 30.8 % (33.0-51.0); Hemoglobin 9.4 g/dL (11.5-16.0); IMMATURE GRAN ABSOLUTE AUTO 0.03 K/mm3 (0.00-0.10); IMMATURE GRAN PERCENT AUTO 0 % (0-1); LYMPHOCYTES ABSOLUTE AUTO 1.64 K/mm3 (0.84-5.20); LYMPHOCYTES PERCENT AUTO 16 % (21-46); MONOCYTES ABSOLUTE AUTO 0.65 K/mm3 (0.16-1.47); MONOCYTES PERCENT AUTO 6 % (4-13); Mean Corpuscular HGB 23.3 pg (26.0-34.0); Mean Corpuscular HGB Conc 30.5 g/dL (31.5-36.5); Mean Corpuscular Volume 76 fL (80-100); Mean Platelet Volume 9.9 fL (9.1-12.4); NEUTROPHILS ABSOLUTE AUTO 7.67 K/mm3 (1.96-9.15); NEUTROPHILS PERCENT AUTO 75 % (41-73); Platelet Count 361 K/mm3 (150-400); RDW Standard Deviation 46.8 fL (35.1-46.3); Red Blood Cell Count 4.04 M/mm3 (3.80-5.20); White Blood Cell Count 10.27 K/mm3 (4.00-11.30)
[2025-03-20 22:27] LABS: Albumin, Blood 2.9 g/dL (3.4-5.0); Albumin/Globulin Ratio 0.9 (0.8-1.8); Bilirubin, Total 0.8 mg/dL (0.1-1.0); Bun/Creatinine Ratio 18.4 (12.0-20.0); Calcium, Blood 8.6 mg/dL (8.5-10.1); Creatinine, Blood 0.82 mg/dL (0.40-1.00); Globulin, Blood 3.2 g/dL (2.2-4.0); Potassium, Blood 4.1 mmol/L (3.5-5.5); Total Protein, Blood 6.1 g/dL (6.4-8.2)
[2025-03-21] MEDS ORDERED: Ketorolac Tromethamine 30mg Vial IV ONE (03:50)
[2025-03-21] MEDS ORDERED: Atropine/Scopalam/Hyoscam/PB 5 ML UDC PO ONE (04:05)
[2025-03-21] MEDS ORDERED: Lactulose 200 GM/300 ML Enema 300ML BTL PR ONE (05:00)
[2025-03-21] MEDS ORDERED: SENN187 PO (05:46)
[2025-03-21] MEDS ORDERED: DOC250 PO (05:46)
[2025-03-21 06:54] VITALS: BP 178/99
[2025-03-29] MEDS ORDERED: BUME2 PO (19:30)
[2025-04-03] MEDS ORDERED: BUME1 PO (15:49)
[2025-04-03] MEDS ORDERED: DOC250 PO (15:50)
[2025-04-03] MEDS ORDERED: ONDA4ODT SL (15:51)
[2025-04-03] MEDS ORDERED: PROM25 PO (15:51)
== END 2025-03-21 06:54 | disposition home or self-care (01) ==
LOC: ER 20:57
PROVIDERS: Student in an Organized Health Care Education/Training Program
DX: K64.4 Residual hemorrhoidal skin tags (principal); K64.8 Other hemorrhoids; K59.00 Constipation, unspecified; R10.32 Left lower quadrant pain; R10.31 Right lower quadrant pain; G89.29 Other chronic pain; I11.0 Hypertensive heart disease with heart failure; I50.9 Heart failure, unspecified; G43.909 Migraine, unspecified, not intractable, without status migrainosus; F43.10 Post-traumatic stress disorder, unspecified; I25.2 Old myocardial infarction; J45.909 Unspecified asthma, uncomplicated; Z79.899 Other long term (current) drug therapy; Z88.0 Allergy status to penicillin
CPT/HCPCS: 36415; 74019; 80053; 85025; 96374; 99284-25; A9270; J1885

== ENCOUNTER 2025-10-21 12:59 | Emergency (ER) | payer OTHER ==
[~2025-10-21] VITALS: Ht 170.2 cm; Wt 72.6 kg
[~2025-10-21 12:59] MED LIST changes: +BUME2 PO; +CARV3.125 PO; +DOC250 PO; +FAMO20 PO; +FURO40 PO; +LOSA25 PO; +ONDA4ODT SL; +SENN187 PO; +SPIR25 PO
[2025-10-21] MEDS ORDERED: Ketorolac Tromethamine 15mg Vial IV ONE (13:15)
[2025-10-21 14:02] LABS: Source, Urine Clean Catch
[2025-10-21 14:15] LABS: Bilirubin, Urine Neg (Neg); Color, Urine Yellow (P-Yellow); Glucose Qualitative, Urine Neg (Neg); Ketones, Urine Neg (Neg); Leukocyte Esterase, Urine 3+ (Neg); Protein, Urine 3+ (Neg); Specific Gravity, Urine 1.015 (1.003-1.022); Urobilinogen, Urine NORM (Normal)
[2025-10-21 14:20] LABS: BASOPHILS ABSOLUTE AUTO 0.05 K/mm3 (0.00-0.23); BASOPHILS PERCENT AUTO 1 % (0-2); EOSINOPHILS ABSOLUTE AUTO 0.02 K/mm3 (0.00-0.68); EOSINOPHILS PERCENT AUTO 0 % (0-6); Hematocrit 35.5 % (33.0-51.0); Hemoglobin 10.7 g/dL (11.5-16.0); IMMATURE GRAN ABSOLUTE AUTO 0.04 K/mm3 (0.00-0.10); IMMATURE GRAN PERCENT AUTO 0 % (0-1); LYMPHOCYTES ABSOLUTE AUTO 0.81 K/mm3 (0.84-5.20); LYMPHOCYTES PERCENT AUTO 8 % (21-46); MONOCYTES ABSOLUTE AUTO 0.68 K/mm3 (0.16-1.47); MONOCYTES PERCENT AUTO 7 % (4-13); Mean Corpuscular HGB Conc 30.1 g/dL (31.5-36.5); Mean Corpuscular Volume 79 fL (80-100); NEUTROPHILS ABSOLUTE AUTO 8.20 K/mm3 (1.96-9.15); NEUTROPHILS PERCENT AUTO 84 % (41-73); NRBC ABSOLUTE 0.00 K/mm3 (0.00-0.02); NRBC Auto 0.0 /100 WBC (0.0-0.2); Platelet Count 371 K/mm3 (150-400); RDW Coefficient Variation 16.9 % (11.7-14.2); RDW Standard Deviation 47.7 fL (35.1-46.3)
[2025-10-21 14:38] LABS: Alanine Aminotransfer (ALT/SGP 36.0 U/L (12-78); Albumin, Blood 3.3 g/dL (3.4-5.0); Albumin/Globulin Ratio 0.8 (0.8-1.8); Anion Gap 10.0 mmol/L (3-11); Aspartate Aminotrans (AST/SGOT 26.0 U/L (12-37); Bilirubin, Total 0.5 mg/dL (0.1-1.0); Blood Urea Nitrogen 11.0 mg/dL (8-24); CO2, Blood 23.0 mmol/L (21-32); Calcium, Blood 8.8 mg/dL (8.5-10.1); Chloride, Blood 106.0 mmol/L (98-108); Creatinine, Blood 0.62 mg/dL (0.40-1.00); Globulin, Blood 3.9 g/dL (2.2-4.0); Glucose, Blood 114.0 mg/dL (70-99); Potassium, Blood 4.1 mmol/L (3.5-5.5); Sodium, Blood 135.0 mmol/L (136-145); Total Protein, Blood 7.2 g/dL (6.4-8.2)
[2025-10-21] MEDS ORDERED: LORazepam 2 MG/ML 1ML Injection IV ONE (16:25)
[2025-10-21] MEDS ORDERED: DOXY100 PO (18:19)
[2025-10-21] MEDS ORDERED: CefTRIAXone Sodium 1,000 MG in NS 100 ML IV ONE (18:20)
[2025-10-21] MEDS ORDERED: DOCU100 PO (18:24)
[2025-10-21 19:31] VITALS: BP 198/101
[2025-10-22] MEDS ORDERED: Flagyl500 MG PO (19:06)
[2025-10-22] MEDS ORDERED: DICY20 PO (19:06)
== END 2025-10-21 19:31 | disposition home or self-care (01) ==
LOC: ER 12:59
PROVIDERS: Physician Assistant
DX: K62.89 Other specified diseases of anus and rectum (principal); I11.0 Hypertensive heart disease with heart failure; I50.20 Unspecified systolic (congestive) heart failure; F43.10 Post-traumatic stress disorder, unspecified; J44.89 Other specified chronic obstructive pulmonary disease; F17.210 Nicotine dependence, cigarettes, uncomplicated; Z79.899 Other long term (current) drug therapy; Z88.0 Allergy status to penicillin
CPT/HCPCS: 74177; 80053; 81001; 81025; 83605; 83690; 85025; 96365-59; 96375; 99284-25; J0696; J1885; J2060; Q9967

== ENCOUNTER 2025-10-22 17:16 | Emergency (ER) | payer OTHER ==
[~2025-10-22] VITALS: Ht 170.2 cm; Wt 79.8 kg
[~2025-10-22 17:16] MED LIST changes: +DOCU100 PO; +DOXY100 PO
[2025-10-22 17:39] LABS: BASOPHILS ABSOLUTE AUTO 0.08 K/mm3 (0.00-0.23); BASOPHILS PERCENT AUTO 1 % (0-2); EOSINOPHILS ABSOLUTE AUTO 0.03 K/mm3 (0.00-0.68); EOSINOPHILS PERCENT AUTO 0 % (0-6); Hematocrit 33.1 % (33.0-51.0); Hemoglobin 10.1 g/dL (11.5-16.0); IMMATURE GRAN ABSOLUTE AUTO 0.02 K/mm3 (0.00-0.10); IMMATURE GRAN PERCENT AUTO 0 % (0-1); LYMPHOCYTES ABSOLUTE AUTO 1.12 K/mm3 (0.84-5.20); LYMPHOCYTES PERCENT AUTO 12 % (21-46); MONOCYTES ABSOLUTE AUTO 0.41 K/mm3 (0.16-1.47); MONOCYTES PERCENT AUTO 4 % (4-13); Mean Corpuscular HGB Conc 30.5 g/dL (31.5-36.5); Mean Corpuscular Volume 79 fL (80-100); NEUTROPHILS ABSOLUTE AUTO 7.63 K/mm3 (1.96-9.15); NEUTROPHILS PERCENT AUTO 82 % (41-73); NRBC ABSOLUTE 0.00 K/mm3 (0.00-0.02); NRBC Auto 0.0 /100 WBC (0.0-0.2); Platelet Count 372 K/mm3 (150-400); RDW Coefficient Variation 16.9 % (11.7-14.2); RDW Standard Deviation 48.0 fL (35.1-46.3)
[2025-10-22 18:03] LABS: Alanine Aminotransfer (ALT/SGP 32.0 U/L (12-78); Albumin, Blood 3.3 g/dL (3.4-5.0); Albumin/Globulin Ratio 0.9 (0.8-1.8); Anion Gap 7.0 mmol/L (3-11); Aspartate Aminotrans (AST/SGOT 21.0 U/L (12-37); Bilirubin, Total 0.4 mg/dL (0.1-1.0); Blood Urea Nitrogen 11.0 mg/dL (8-24); CO2, Blood 26.0 mmol/L (21-32); Calcium, Blood 8.9 mg/dL (8.5-10.1); Chloride, Blood 107.0 mmol/L (98-108); Creatinine, Blood 0.71 mg/dL (0.40-1.00); Globulin, Blood 3.7 g/dL (2.2-4.0); Glucose, Blood 144.0 mg/dL (70-99); Potassium, Blood 4.0 mmol/L (3.5-5.5); Sodium, Blood 136.0 mmol/L (136-145); Total Protein, Blood 7.0 g/dL (6.4-8.2)
[2025-10-22] MEDS ORDERED: Flagyl500 MG PO (19:06)
[2025-10-22] MEDS ORDERED: DICY20 PO (19:06)
[2025-10-22 19:15] VITALS: BP 157/106
== END 2025-10-22 19:33 | disposition home or self-care (01) ==
LOC: ER 17:16
PROVIDERS: Emergency Medicine
DX: K62.89 Other specified diseases of anus and rectum (principal); I11.0 Hypertensive heart disease with heart failure; I50.20 Unspecified systolic (congestive) heart failure; I25.10 Atherosclerotic heart disease of native coronary artery without angina pectoris; I25.2 Old myocardial infarction; J44.89 Other specified chronic obstructive pulmonary disease; R73.03 Prediabetes; F17.210 Nicotine dependence, cigarettes, uncomplicated; Z88.0 Allergy status to penicillin; Z79.899 Other long term (current) drug therapy
CPT/HCPCS: 80053; 83690; 85025; 96374; 99284-25; A9270; J1790

== ENCOUNTER 2025-10-23 11:27 | Emergency (ER) | payer OTHER ==
[~2025-10-23] VITALS: Ht 170.2 cm; Wt 79.8 kg
[~2025-10-23 11:27] MED LIST changes: +Flagyl500 MG PO
[2025-10-23 12:45] LABS: BASOPHILS ABSOLUTE AUTO 0.07 K/mm3 (0.00-0.23); BASOPHILS PERCENT AUTO 1 % (0-2); EOSINOPHILS ABSOLUTE AUTO 0.04 K/mm3 (0.00-0.68); EOSINOPHILS PERCENT AUTO 1 % (0-6); Hematocrit 33.0 % (33.0-51.0); Hemoglobin 10.0 g/dL (11.5-16.0); IMMATURE GRAN ABSOLUTE AUTO 0.02 K/mm3 (0.00-0.10); IMMATURE GRAN PERCENT AUTO 0 % (0-1); LYMPHOCYTES ABSOLUTE AUTO 1.01 K/mm3 (0.84-5.20); LYMPHOCYTES PERCENT AUTO 13 % (21-46); MONOCYTES ABSOLUTE AUTO 0.40 K/mm3 (0.16-1.47); MONOCYTES PERCENT AUTO 5 % (4-13); Mean Corpuscular HGB Conc 30.3 g/dL (31.5-36.5); Mean Corpuscular Volume 80 fL (80-100); NEUTROPHILS ABSOLUTE AUTO 6.40 K/mm3 (1.96-9.15); NEUTROPHILS PERCENT AUTO 81 % (41-73); NRBC ABSOLUTE 0.00 K/mm3 (0.00-0.02); NRBC Auto 0.0 /100 WBC (0.0-0.2); Platelet Count 362 K/mm3 (150-400); RDW Coefficient Variation 17.2 % (11.7-14.2); RDW Standard Deviation 49.4 fL (35.1-46.3)
[2025-10-23 13:28] LABS: Influenza A, PCR NEGATIVE (NEGATIVE); Influenza B, PCR NEGATIVE (NEGATIVE); Resp Syncytial Virus, PCR NEGATIVE (NEGATIVE); SARS-Cov-2 (COVID-19) PCR, MMC NEGATIVE (NEGATIVE)
[2025-10-23 14:56] LABS: Alanine Aminotransfer (ALT/SGP 33.0 U/L (12-78); Albumin, Blood 3.3 g/dL (3.4-5.0); Albumin/Globulin Ratio 0.9 (0.8-1.8); Anion Gap 12.0 mmol/L (3-11); Aspartate Aminotrans (AST/SGOT 25.0 U/L (12-37); Bilirubin, Total 0.6 mg/dL (0.1-1.0); Blood Urea Nitrogen 12.0 mg/dL (8-24); CO2, Blood 22.0 mmol/L (21-32); Calcium, Blood 8.9 mg/dL (8.5-10.1); Chloride, Blood 105.0 mmol/L (98-108); Creatinine, Blood 0.68 mg/dL (0.40-1.00); Globulin, Blood 3.5 g/dL (2.2-4.0); Glucose, Blood 108.0 mg/dL (70-99); Potassium, Blood 3.9 mmol/L (3.5-5.5); Sodium, Blood 135.0 mmol/L (136-145); Total Protein, Blood 6.8 g/dL (6.4-8.2)
[2025-10-23 16:59] VITALS: BP 160/129
[2025-10-28] MEDS ORDERED: ONDA4ODT MM (08:23)
== END 2025-10-23 17:28 | disposition home or self-care (01) ==
LOC: ER 11:27
PROVIDERS: Emergency Medicine
DX: J81.1 Chronic pulmonary edema (principal); I11.0 Hypertensive heart disease with heart failure; I50.9 Heart failure, unspecified; Z87.891 Personal history of nicotine dependence; Z88.0 Allergy status to penicillin; Z79.899 Other long term (current) drug therapy
CPT/HCPCS: 71046; 71260; 80053; 83690; 84484; 85025; 85379; 87637; 93005; 93010; 96374-59; 96375-59; 99285-25; J1790; J1938; J7120; Q9967

== ENCOUNTER 2025-10-24 09:41 | Emergency (ER) | payer OTHER ==
[~2025-10-24] VITALS: Ht 170.2 cm; Wt 79.8 kg
[2025-10-24] MEDS ORDERED: NS 1,000 ML IV SCH (10:40)
[2025-10-24 11:04] LABS: BASOPHILS ABSOLUTE AUTO 0.07 K/mm3 (0.00-0.23); BASOPHILS PERCENT AUTO 1 % (0-2); EOSINOPHILS ABSOLUTE AUTO 0.04 K/mm3 (0.00-0.68); EOSINOPHILS PERCENT AUTO 0 % (0-6); Hematocrit 30.9 % (33.0-51.0); Hemoglobin 9.4 g/dL (11.5-16.0); IMMATURE GRAN ABSOLUTE AUTO 0.03 K/mm3 (0.00-0.10); IMMATURE GRAN PERCENT AUTO 0 % (0-1); LYMPHOCYTES ABSOLUTE AUTO 0.87 K/mm3 (0.84-5.20); LYMPHOCYTES PERCENT AUTO 9 % (21-46); MONOCYTES ABSOLUTE AUTO 0.47 K/mm3 (0.16-1.47); MONOCYTES PERCENT AUTO 5 % (4-13); Mean Corpuscular HGB Conc 30.4 g/dL (31.5-36.5); Mean Corpuscular Volume 79 fL (80-100); NEUTROPHILS ABSOLUTE AUTO 8.13 K/mm3 (1.96-9.15); NEUTROPHILS PERCENT AUTO 85 % (41-73); NRBC ABSOLUTE 0.00 K/mm3 (0.00-0.02); NRBC Auto 0.0 /100 WBC (0.0-0.2); Platelet Count 407 K/mm3 (150-400); RDW Coefficient Variation 16.7 % (11.7-14.2); RDW Standard Deviation 47.3 fL (35.1-46.3)
[2025-10-24 11:14] LABS: Source, Urine Clean Catch
[2025-10-24 11:19] LABS: Bilirubin, Urine Neg (Neg); Color, Urine Yellow (P-Yellow); Glucose Qualitative, Urine Neg (Neg); Ketones, Urine Neg (Neg); Leukocyte Esterase, Urine 2+ (Neg); Protein, Urine 3+ (Neg); Specific Gravity, Urine 1.015 (1.003-1.022); Urobilinogen, Urine 1+ (Normal)
[2025-10-24 11:23] LABS: Alanine Aminotransfer (ALT/SGP 31.0 U/L (12-78); Albumin, Blood 3.2 g/dL (3.4-5.0); Albumin/Globulin Ratio 0.9 (0.8-1.8); Anion Gap 9.0 mmol/L (3-11); Aspartate Aminotrans (AST/SGOT 22.0 U/L (12-37); Bilirubin, Total 0.5 mg/dL (0.1-1.0); Blood Urea Nitrogen 13.0 mg/dL (8-24); CO2, Blood 28.0 mmol/L (21-32); Calcium, Blood 9.0 mg/dL (8.5-10.1); Chloride, Blood 103.0 mmol/L (98-108); Creatinine, Blood 0.75 mg/dL (0.40-1.00); Globulin, Blood 3.7 g/dL (2.2-4.0); Glucose, Blood 109.0 mg/dL (70-99); Potassium, Blood 4.0 mmol/L (3.5-5.5); Sodium, Blood 136.0 mmol/L (136-145); Total Protein, Blood 6.9 g/dL (6.4-8.2)
[2025-10-24 11:34] LABS: Red Blood Cells, Urine 0-2 /hpf (0-2)
[2025-10-24 11:38] LABS: U Amphetamine Screen Not Detected; U Barbiturate Screen Not Detected; U Benzodiazapine Screen DETECTED; U Buprenorphine Screen Not Detected; U Cannabinoids Screen Not Detected; U Cocaine Screen Not Detected; U Methadone Screen Not Detected; U Methamphetamine Screen DETECTED; U Opiates Screen Not Detected; U Oxycodone Screen Not Detected; U Phencyclidine Screen Not Detected
[2025-10-24 12:33] VITALS: BP 157/130
[2025-10-28] MEDS ORDERED: ONDA4ODT MM (08:23)
== END 2025-10-24 12:45 | disposition home or self-care (01) ==
LOC: ER 09:41
PROVIDERS: Emergency Medicine
DX: K62.89 Other specified diseases of anus and rectum (principal); F15.90 Other stimulant use, unspecified, uncomplicated; F17.210 Nicotine dependence, cigarettes, uncomplicated; F43.10 Post-traumatic stress disorder, unspecified; J44.89 Other specified chronic obstructive pulmonary disease; I11.0 Hypertensive heart disease with heart failure; I50.20 Unspecified systolic (congestive) heart failure; Z79.899 Other long term (current) drug therapy; Z88.0 Allergy status to penicillin
CPT/HCPCS: 80053; 81001; 83690; 84703; 85025; 87077; 87086; 87186; 99284; J7030

== ENCOUNTER 2025-10-27 03:48 | Emergency (ER) | payer OTHER ==
[~2025-10-27] VITALS: Ht 170.2 cm; Wt 79.8 kg
[2025-10-27 04:07] LABS: BASOPHILS ABSOLUTE AUTO 0.05 K/mm3 (0.00-0.23); BASOPHILS PERCENT AUTO 1 % (0-2); EOSINOPHILS ABSOLUTE AUTO 0.15 K/mm3 (0.00-0.68); EOSINOPHILS PERCENT AUTO 2 % (0-6); Hematocrit 29.9 % (33.0-51.0); Hemoglobin 9.0 g/dL (11.5-16.0); IMMATURE GRAN ABSOLUTE AUTO 0.03 K/mm3 (0.00-0.10); IMMATURE GRAN PERCENT AUTO 0 % (0-1); LYMPHOCYTES ABSOLUTE AUTO 1.52 K/mm3 (0.84-5.20); LYMPHOCYTES PERCENT AUTO 16 % (21-46); MONOCYTES ABSOLUTE AUTO 0.71 K/mm3 (0.16-1.47); MONOCYTES PERCENT AUTO 8 % (4-13); Mean Corpuscular HGB Conc 30.1 g/dL (31.5-36.5); Mean Corpuscular Volume 80 fL (80-100); NEUTROPHILS ABSOLUTE AUTO 6.93 K/mm3 (1.96-9.15); NEUTROPHILS PERCENT AUTO 74 % (41-73); NRBC ABSOLUTE 0.00 K/mm3 (0.00-0.02); NRBC Auto 0.0 /100 WBC (0.0-0.2); Platelet Count 444 K/mm3 (150-400); RDW Coefficient Variation 16.8 % (11.7-14.2); RDW Standard Deviation 48.4 fL (35.1-46.3)
[2025-10-27 05:00] LABS: Alanine Aminotransfer (ALT/SGP 39.0 U/L (12-78); Albumin, Blood 2.9 g/dL (3.4-5.0); Albumin/Globulin Ratio 0.8 (0.8-1.8); Anion Gap 9.0 mmol/L (3-11); Aspartate Aminotrans (AST/SGOT 47.0 U/L (12-37); Bilirubin, Total 0.2 mg/dL (0.1-1.0); Blood Urea Nitrogen 22.0 mg/dL (8-24); CO2, Blood 25.0 mmol/L (21-32); Calcium, Blood 8.1 mg/dL (8.5-10.1); Chloride, Blood 106.0 mmol/L (98-108); Creatinine, Blood 0.66 mg/dL (0.40-1.00); Globulin, Blood 3.5 g/dL (2.2-4.0); Glucose, Blood 106.0 mg/dL (70-99); Potassium, Blood 4.2 mmol/L (3.5-5.5); Sodium, Blood 136.0 mmol/L (136-145); Total Protein, Blood 6.4 g/dL (6.4-8.2)
[2025-10-27 05:15] VITALS: BP 158/125
[2025-10-27] MEDS ORDERED: Ondansetron 4 MG SoluTab SL ONE (05:15)
[2025-10-28] MEDS ORDERED: ONDA4ODT MM (08:23)
== END 2025-10-27 05:24 | disposition home or self-care (01) ==
LOC: ER 03:48
PROVIDERS: Student in an Organized Health Care Education/Training Program
DX: K62.89 Other specified diseases of anus and rectum (principal); Z88.0 Allergy status to penicillin; Z79.899 Other long term (current) drug therapy; I11.0 Hypertensive heart disease with heart failure; I50.20 Unspecified systolic (congestive) heart failure; F43.10 Post-traumatic stress disorder, unspecified; J44.9 Chronic obstructive pulmonary disease, unspecified; J45.909 Unspecified asthma, uncomplicated; F17.210 Nicotine dependence, cigarettes, uncomplicated
CPT/HCPCS: 80053; 83690; 85025; 99284; A9270

== ENCOUNTER 2025-10-31 09:26 | Emergency (ER) | payer OTHER ==
[~2025-10-31] VITALS: Ht 170.2 cm; Wt 79.8 kg
[2025-10-31 10:28] LABS: BASOPHILS ABSOLUTE AUTO 0.05 K/mm3 (0.00-0.23); BASOPHILS PERCENT AUTO 1 % (0-2); EOSINOPHILS ABSOLUTE AUTO 0.05 K/mm3 (0.00-0.68); EOSINOPHILS PERCENT AUTO 1 % (0-6); Hematocrit 28.2 % (33.0-51.0); Hemoglobin 8.7 g/dL (11.5-16.0); IMMATURE GRAN ABSOLUTE AUTO 0.04 K/mm3 (0.00-0.10); IMMATURE GRAN PERCENT AUTO 0 % (0-1); LYMPHOCYTES ABSOLUTE AUTO 1.39 K/mm3 (0.84-5.20); LYMPHOCYTES PERCENT AUTO 13 % (21-46); MONOCYTES ABSOLUTE AUTO 0.48 K/mm3 (0.16-1.47); MONOCYTES PERCENT AUTO 5 % (4-13); Mean Corpuscular HGB Conc 30.9 g/dL (31.5-36.5); Mean Corpuscular Volume 78 fL (80-100); NEUTROPHILS ABSOLUTE AUTO 8.60 K/mm3 (1.96-9.15); NEUTROPHILS PERCENT AUTO 81 % (41-73); NRBC ABSOLUTE 0.00 K/mm3 (0.00-0.02); NRBC Auto 0.0 /100 WBC (0.0-0.2); Platelet Count 381 K/mm3 (150-400); RDW Coefficient Variation 16.5 % (11.7-14.2); RDW Standard Deviation 47.1 fL (35.1-46.3)
[2025-10-31 10:47] LABS: Alanine Aminotransfer (ALT/SGP 32 U/L (12-78); Albumin, Blood 3.2 g/dL (3.4-5.0); Albumin/Globulin Ratio 0.9 (0.8-1.8); Anion Gap 5 mmol/L (3-11); Aspartate Aminotrans (AST/SGOT 25 U/L (12-37); Beta HCG, Quantitative, Serum <1 mIU/mL (0-3); Bilirubin, Total 0.6 mg/dL (0.1-1.0); Blood Urea Nitrogen 27 mg/dL (8-24); CO2, Blood 26 mmol/L (21-32); Calcium, Blood 8.6 mg/dL (8.5-10.1); Chloride, Blood 106 mmol/L (98-108); Creatinine, Blood 0.66 mg/dL (0.40-1.00); Globulin, Blood 3.6 g/dL (2.2-4.0); Glucose, Blood 97 mg/dL (70-99); Potassium, Blood 4.5 mmol/L (3.5-5.5); Sodium, Blood 132 mmol/L (136-145); Total Protein, Blood 6.8 g/dL (6.4-8.2)
[2025-10-31 15:56] LABS: Source, Urine Clean Catch
[2025-10-31 16:00] LABS: Bilirubin, Urine Neg (Neg); Color, Urine Yellow (P-Yellow); Glucose Qualitative, Urine Neg (Neg); Ketones, Urine 1+ (Neg); Leukocyte Esterase, Urine 2+ (Neg); Protein, Urine 3+ (Neg); Specific Gravity, Urine 1.025 (1.003-1.022); Urobilinogen, Urine 1+ (Normal)
[2025-10-31] MEDS ORDERED: Morphine Sulfate 4 MG/1 ML Injection IV ONE (16:45)
[2025-10-31] MEDS ORDERED: Furosemide 10 MG / ML 2ML Vial IV ONE (16:45)
[2025-10-31] MEDS ORDERED: Diazepam 5 MG / ML 2ML SYR IV ONE (18:05)
[2025-10-31 18:45] VITALS: BP 125/106
[2025-10-31 18:57] LABS: Chlamydia Trachomatis Vaginal NOT DETECTED (NOT DETECT); Neisseria Gonorrhoea Vaginal NOT DETECTED (NOT DETECT)
[2025-10-31 19:46] LABS: Bacterial Vaginosis PCR Positive (NEGATIVE); Candida Group, PCR DETECTED (NOT DETECT); Candida glabrata-krusei, PCR DETECTED (NOT DETECT)
[2025-10-31] MEDS ORDERED: ALEVAZOL56.7 G1 TOP (20:18)
[2025-10-31] MEDS ORDERED: METR500 PO (20:18)
[2025-10-31] MEDS ORDERED: LOSA25 PO (20:18)
[2025-10-31] MEDS ORDERED: LASIX40 MG PO (20:18)
== END 2025-10-31 20:50 | disposition home or self-care (01) ==
LOC: ER 09:26
PROVIDERS: Student in an Organized Health Care Education/Training Program
DX: N76.0 Acute vaginitis (principal); I11.0 Hypertensive heart disease with heart failure; I50.9 Heart failure, unspecified; D64.9 Anemia, unspecified; Z88.0 Allergy status to penicillin; Z88.8 Allergy status to other drugs, medicaments and biological substances
CPT/HCPCS: 71046; 74177; 80053; 81001; 81515; 83690; 83880; 84484; 84702; 85025; 87077; 87086; 87186; 87491; 87591; 93005; 93010; 96374-59; 96375; 99285-25; A9270; J1938; J2270; J3360; Q9967